=== PATIENT | female | born 1980 | race Caucasian/White ===

== ENCOUNTER → 2018-07-04 | Outpatient (CLI) | payer MEDICAID ==
[~2018-07-04] MED LIST: ACHD5005 PO; ALPR.25T PO; CLIN300C3 PO; DOCU-143 PO; HYDR1TAB8 OP; LORA10TA76 PO; PREN1TAB86 PO; SULF1TAB38 PO; TRAM-21 PO
--- NOTE | 2018-07-04 09:21 | Diagnostic Imaging Report ---
PROCEDURE: CT abdomen and pelvis with contrast. TECHNIQUE: Multiple contiguous axial images were obtained through the abdomen and pelvis after administration of intravenous contrast. INDICATION: Abdominal pain, hernia. The lung bases were nonacute. The liver and gallbladder are unremarkable. Spleen nonfocal and unremarkable for size. There is no adrenal mass. The pancreas had an unremarkable appearance. The unobstructed kidneys normal. There is no bowel obstruction. There is a simple appearing left adnexal cyst presumed ovarian measuring 2.1 cm. The uterus and right adnexa appeared unremarkable. There is no ascites. There is no appendicitis or diverticulitis. There is no abdominopelvic, mesenteric or retroperitoneal lymphadenopathy. The osseous structures were nonacute. IMPRESSION: 1. Small left ovarian cyst likely physiologic without apparent complexity. 2. No obstructive features, inflammatory process or acute appearing abdominal pelvic abnormalities. Dictated by: Dictated on workstation # [id number]
== END ==
LOC: RAD 08:02
PROVIDERS: ATTEND Nurse Practitioner Family
DX: N83.202 Unspecified ovarian cyst, left side (principal); K43.9 Ventral hernia without obstruction or gangrene
CPT/HCPCS: 74177

== ENCOUNTER 2018-07-26 15:33 | Outpatient (CLI) | payer MEDICAID ==
[~2018-07-26] VITALS: Ht 162.6 cm; Wt 70.3 kg
[~2018-07-26 15:33] MED LIST changes: -ACHD5005 PO; -DOCU-143 PO; -LORA10TA76 PO; -PREN1TAB86 PO
[2018-07-26] MEDS ORDERED: LORA10TA76 PO (15:56)
[2018-07-26] MEDS ORDERED: PREN1TAB86 PO (15:56)
[2018-07-27] MEDS ORDERED: ACHD5005 PO (13:07)
[2018-07-27] MEDS ORDERED: DOCU-143 PO (13:07)
== END 2018-07-26 16:08 | disposition home or self-care (01) ==
LOC: PREOP 15:33
PROVIDERS: ATTEND Surgery
DX: Z01.818 Encounter for other preprocedural examination (principal)

== ENCOUNTER 2018-07-27 10:57 | Day surgery (SDC) | payer MEDICAID ==
[~2018-07-27] VITALS: Ht 162.6 cm; Wt 70.3 kg
[~2018-07-27 10:57] MED LIST changes: +LORA10TA76 PO; +PREN1TAB86 PO
[2018-07-27] MEDS ORDERED: LIDOCAINE 1% INJ 20 ML 20 ML VIAL ONE (11:12)
[2018-07-27] MEDS ORDERED: BUPIVACAINE 0.5% 30 ML (SENSORCAINE) VIAL ONE (11:12)
[2018-07-27 11:15] VITALS: BP 118/73
[2018-07-27] MEDS ORDERED: ceFAZolin 2 GM IV Premixed 50 ML IV ONE (11:15)
[2018-07-27] MEDS: LACTATED RINGERS 1,000 ML IV PRN ×2 (11:25→12:41)
[2018-07-27 11:28] LABS: BASOPHILS % (AUTO) 0 % (0-10); EOSINOPHILS # (AUTO) 0.3 10^3/uL (0.0-0.3); EOSINOPHILS % (AUTO) 3 % (0-10); HEMATOCRIT 42 % (35-52); HEMOGLOBIN 13.7 G/DL (11.5-16.0); LYMPHOCYTES # (AUTO) 1.1 X 10^3 (1.0-4.0); LYMPHOCYTES % (AUTO) 14 % (12-44); MEAN CORPUSCULAR HEMOGLOBIN 30 PG (25-34); MEAN CORPUSCULAR HGB CONC 33 G/DL (32-36); MEAN CORPUSCULAR VOLUME 92 FL (80-99); MEAN PLATELET VOLUME 11.5 FL (7.4-10.4); MONOCYTES # (AUTO) 0.6 X 10^3 (0.0-1.0); MONOCYTES % (AUTO) 7 % (0-12); NEUTROPHILS # (AUTO) 5.8 X 10^3 (1.8-7.8); NEUTROPHILS % (AUTO) 75 % (42-75); PLATELET COUNT 176 10^3/uL (130-400); RED CELL DISTRIBUTION WIDTH 13.8 % (10.0-14.5); WHITE BLOOD COUNT 7.7 10^3/uL (4.3-11.0)
[2018-07-27] MEDS ORDERED: fentaNYL INJECTION 100 MCG/2 ML AMP ONE (11:30)
[2018-07-27] MEDS ORDERED: MIDAZOLAM 2 MG/2 ML (VERSED) VIAL ONE (11:30)
[2018-07-27] MEDS ORDERED: PROPOFOL INJECTION 50 ML IV ONE (11:31)
[2018-07-27] MEDS ORDERED: ONDANSETRON 4 MG/2 ML (SDV) Z0FRAN ONE (11:31)
[2018-07-27] MEDS ORDERED: SEVOFLURANE (ULTANE) 15 ML INHAL SOLN ONE ×5 (11:31→13:04)
[2018-07-27] MEDS ORDERED: DEXAMETHASONE 10 MG/ML (DECADRON) 1 ML VIAL ONE (11:31)
[2018-07-27] MEDS ORDERED: LIDOCAINE PF 2% 2 ML (XYLOCAINE) VIAL ONE (11:31)
[2018-07-27] MEDS ORDERED: ROCURONIUM 10 MG/ML 5 ML SYRINGE IV ONE (11:31)
[2018-07-27] MEDS ORDERED: KETOROLAC 30 MG/ML VIAL IVP ONE (11:45)
--- NOTE | 2018-07-27 12:00 | Progress Note-Pre Operative ---
Pre-Operative Progress Note H&P Reviewed The H&P was reviewed, patient examined and no changes noted. Date Seen by Provider: Jul 27, 2018 Time Seen by Provider: 12:00 Date H&P Reviewed: Jul 27, 2018 Time H&P Reviewed: 12:00 Pre-Operative Diagnosis: incisional hernia TIMO DAVALOS DO Jul 27, 2018 12:00
[2018-07-27] MEDS ORDERED: NEOSTIGMINE 1 MG/ML 5 ML SYRINGE ONE (12:57)
[2018-07-27] MEDS ORDERED: GLYCOPYRROLATE 0.2 MG/ML (ROBINUL) 2 ML VIAL ONE (12:57)
--- NOTE | 2018-07-27 13:06 | Progress Note-Post Operative ---
Post-Operative Progess Note Surgeon (s)/Service And Repair Supervisor (s) Surgeon TIMO DAVALOS DO Service And Repair Supervisor: Dr. Ulrich Pre-Operative Diagnosis incisional hernia Post-Operative Diagnosis same Procedure & Operative Findings Date of Procedure 07/27/18 Procedure Performed/Findings lap incisional hernia Anesthesia Type gen Estimated Blood Loss Estimated blood loss (mL): min Specimens/Packing Specimens Removed hernia contents TIMO DAVALOS DO Jul 27, 2018 13:06
[2018-07-27] MEDS ORDERED: ACHD5005 PO (13:07)
[2018-07-27] MEDS ORDERED: DOCU-143 PO (13:07)
--- NOTE | 2018-07-27 13:09 | Discharge Inst-Simple/Standard ---
Discharge Inst-Standard Discharge Medications New, Converted or Re-Newed RX: RX on Chart Patient Instructions/Follow Up Plan of Care/Instructions/FU: 2 weeks Irene Activity as Tolerated: No Discharge Diet: Regular Diet Other Inst to Patient Follow up Appt: Make appointment for 2 week. Instructions: No lifting greater than 10 pounds. No strenuous activity. May shower in 24 hours, no tub bath or soaking. Use incentive spirometer at home as directed. No Smoking Skin/Wound Care: You have special glue over incisions it will fall off on its own. Symptoms to Report: Appetite Changes, Extremity Discoloration, Numbness/Tingling, Swelling Increased , Bleeding Excessive, Eyesight Changes, Pain Increased, Urine Color Change, Constipation(Persistent), Fever over 101 degree F, Pain/Pressure in chest, Urinating Difficulty, Cough Up/Vomit Blood, Heart Beat Irreg/Pounding, Pain/ Pressure in jaw, Vaginal Bleeding Increase, Cramps in feet or legs, Lightheadedness, Pain/Pressure in shoulder, Diarrhea(Persistent), Memory Changes Suddenly, Questions/Concerns, Weight gain consecutive days, Dizziness/ Fainting, Nausea/Vomiting, Shortness of Breath, Weight gain over 2 pounds If questions or concerns contact your physician Or seek help at emergency department. TIMO IRENE DO Jul 27, 2018 13:09
[2018-07-27] MEDS ORDERED: HYDROcodone/APAP 5 MG/325 MG (LORTAB) TAB PO PRN (13:15)
[2018-07-27] MEDS ORDERED: morphine INJ 10 MG/ML 1ML (SYR OR VIAL) IVP ONE (13:30)
[2018-07-27] MEDS ORDERED: HYDROmorphone 2 MG/ML VIAL (DILAUDID) IV ONE (13:30)
[2018-07-27] MEDS ORDERED: ONDANSETRON 4 MG/2 ML (SDV) Z0FRAN IVP PRN (13:30)
[2018-07-27] MEDS ORDERED: MEPERIDINE (DEMEROL) INJ 50 MG/ML IVP ONE (13:30)
[2018-07-27] MEDS ORDERED: HYDROmorphone 2 MG/ML VIAL (DILAUDID) ONE (13:50)
[2018-07-27 14:20] VITALS: BP 115/63
[2018-07-27] MEDS ORDERED: HYDROcodone/APAP 5 MG/325 MG (LORTAB) TAB ONE (14:29)
[2018-07-27] MEDS ORDERED: HYDROcodone/APAP 10 MG/325 MG (LORTAB) TAB PO ONE (14:37)
[2018-07-27] MEDS ORDERED: HYDROcodone/APAP 10 MG/325 MG (LORTAB) TAB PO NR (14:45)
[2018-07-27 14:50] VITALS: BP 113/78
--- NOTE | 2018-07-27 14:51 | OPERATIVE REPORT ---
DATE OF SERVICE: 07/27/2018 PREOPERATIVE DIAGNOSIS: Incisional hernia. POSTOPERATIVE DIAGNOSIS: Incisional hernia. PROCEDURE: Laparoscopic incisional hernia repair. SURGEON: Timo Irene DO FABRICATION AND ASSEMBLY SUPERVISOR: Dr. Ulrich, assisted in retraction, dissection and closure. ESTIMATED BLOOD LOSS: Minimal. COMPLICATIONS: None. INDICATIONS: The patient is a 38-year-old female with an incisional hernia. She understands risks and benefits of procedure and wished to proceed with procedure. Consent was signed in the chart. DESCRIPTION OF PROCEDURE: The patient was taken to the operating suite. She was prepped and draped in sterile fashion. Surgical pause was performed. Jazlyn technique was used to enter the abdomen in left upper quadrant. A balloon trocar was inserted and pneumoperitoneum was achieved. Under direct visualization of the laparoscope, a 5 mm trocar was placed in left lower quadrant, a 5 mm trocar was placed in the right lower quadrant. Hernia was visualized at the umbilicus, which was some fat containing which was grasped, elevated and removed. The falciform ligament was then partially taken down using a [place] and cautery in retraction. Once that was performed, the pelvis was inspected. Both ovaries had normal appearance. The uterus had normal appearance as well. A 4-1/2 inch Echo mesh was inserted in the abdomen and grasped through a stab incision at the umbilicus, which was grasped and elevated. The balloon was inflated using a SecureStrap Tacker. Circumferential tacks were placed. The balloon was removed. The inner crown of tacks was placed as well. The abdomen was then desufflated, trocars were removed. The fascia of the 12 mm trocar site was closed with 0 Vicryl suture in a weehic-es-nofpr fashion. The skin was then closed using 4-0 Monocryl in a subcuticular fashion. The abdomen was then washed and dried and Skin Affix was placed over the incisions. The patient tolerated the procedure well without any complications. She was taken to the recovery room in stable condition. Job ID: [id number] DocumentID: [id number] Dictated Date: 07/27/2018 13:20:33 Veterans' Coordinator Date: 07/27/2018 14:50:30 Dictated By: TIMO IRENE DO
[2018-07-27 15:20] VITALS: BP 112/74
[2018-07-27 16:00] VITALS: BP 112/74
== END 2018-07-27 16:00 | disposition home or self-care (01) ==
LOC: SDC 10:57
PROVIDERS: ATTEND Surgery
DX: K43.2 Incisional hernia without obstruction or gangrene (principal)
CPT/HCPCS: 36415; 84703; 85025; 87081; 94664

== ENCOUNTER 2018-08-30 21:19 | Emergency (ER) | payer MEDICAID ==
[~2018-08-30] VITALS: Ht 162.6 cm; Wt 70.3 kg
[~2018-08-30 21:19] MED LIST changes: +ACHD5005 PO; +DOCU-143 PO
[2018-08-30] MEDS ORDERED: LACTATED RINGERS 1,000 ML IV ONE (22:24)
[2018-08-30] MEDS ORDERED: KETOROLAC 30 MG/ML VIAL IVP STA (22:24)
[2018-08-30] MEDS ORDERED: ONDANSETRON 4 MG/2 ML (SDV) Z0FRAN IVP ONE (22:30)
[2018-08-30 22:41] LABS: BILIRUBIN,URINE NEGATIVE (NEGATIVE); CLARITY,URINE CLEAR; COLOR,URINE YELLOW; GLUCOSE, URINE (UA) NEGATIVE (NEGATIVE); KETONES,URINE 1+ (NEGATIVE); LEUKOCYTE ESTERASE ,URINE 2+ (NEGATIVE); NITRITE,URINE POSITIVE (NEGATIVE); PH,URINE 7 (5-9); PROTEIN,URINE NEGATIVE (NEGATIVE); UROBILINOGEN,URINE 1 MG/DL (NORMAL)
[2018-08-30 22:49] LABS: BASOPHILS # (AUTO) 0.1 10^3/uL (0.0-0.1); BASOPHILS % (AUTO) 1 % (0-10); EOSINOPHILS # (AUTO) 0.4 10^3/uL (0.0-0.3); EOSINOPHILS % (AUTO) 5 % (0-10); HEMATOCRIT 42 % (35-52); HEMOGLOBIN 14.1 G/DL (11.5-16.0); LYMPHOCYTES # (AUTO) 2.2 X 10^3 (1.0-4.0); LYMPHOCYTES % (AUTO) 28 % (12-44); MEAN CORPUSCULAR HEMOGLOBIN 30 PG (25-34); MEAN CORPUSCULAR HGB CONC 33 G/DL (32-36); MEAN CORPUSCULAR VOLUME 90 FL (80-99); MEAN PLATELET VOLUME 12.2 FL (7.4-10.4); MONOCYTES # (AUTO) 0.7 X 10^3 (0.0-1.0); MONOCYTES % (AUTO) 9 % (0-12); NEUTROPHILS # (AUTO) 4.5 X 10^3 (1.8-7.8); NEUTROPHILS % (AUTO) 57 % (42-75); PLATELET COUNT 216 10^3/uL (130-400); RED BLOOD COUNT 4.69 10^6/uL (4.35-5.85); RED CELL DISTRIBUTION WIDTH 13.1 % (10.0-14.5); WHITE BLOOD COUNT 7.8 10^3/uL (4.3-11.0)
[2018-08-30 22:58] LABS: BACTERIA,URINE TRACE /HPF
[2018-08-30 23:02] LABS: ALANINE AMINOTRANSFERASE 17 U/L (0-55); ALBUMIN 4.5 GM/DL (3.2-4.5); ALKALINE PHOSPHATASE 51 U/L (40-136); BILIRUBIN,TOTAL 0.2 MG/DL (0.1-1.0); BUN/CREATININE RATIO 25; CARBON DIOXIDE 25 MMOL/L (21-32); CHLORIDE 102 MMOL/L (98-107); CREATININE SERUM 0.93 MG/DL (0.60-1.30); GFR ESTIMATED > 60; GLUCOSE 93 MG/DL (70-105); POTASSIUM 4.4 MMOL/L (3.6-5.0); SODIUM 139 MMOL/L (135-145)
--- NOTE | 2018-08-30 23:08 | ED Abdominal Pain ---
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 A&OX4. C/O RT SIDE FLANK PAIN THAT RADIATES TO RT LOWER ABD, GROIN AREA THAT BEGAN APPROX 2014 THIS EVENING. REPORTS RECENT CHILLS AND IS CURRENTLY AFEBRILE WITH TYMPANIC TEMP OF 96.9. PT REPORTS PAIN CAME OUT OF NOWHERE. REPORTS PAIN 12 OUT OF 10. Source of Information: Patient Exam Limitations: No Limitations History of Present Illness Date Seen by Provider: Aug 30, 2018 Time Seen by Provider: 22:05 Initial Comments PT ARRIVES VIA POV FROM HOME C/O RLQ PAIN SINCE 2029 TONIGHT PAIN BEGAN RIGHT AFTER SHE SAT DOWN HAD SOME PAIN IN RIGHT LOWER BACK AROUND 1900, AND IS STILL THERE, BUT NOT BAD NOTHING WORSENS OR IMPROVES PAIN PAIN IS CONSTANT NO URINARY SYMPTOMS NO FEVER + NAUSEA, NO VOMITING NO DIARRHEA/CONSTIPATION--HAD A NORMAL BM TODAY NO HISTORY OF SIMILAR PT HAS NOT TAKEN ANYTHING FOR PAIN LMP 3 WEEKS AGO, S/P BTL. HAD UMBILICAL HERNIA REPAIR [address] DAVALOS PCP: [facility] Allergies and Home Medications Allergies Coded Allergies: No Known Drug Allergies (Unverified , 07/26/18) Home Medications Docusate Sodium 100 Mg Capsule, 100 MG PO BID Prescribed by: TIMO DAVALOS on 07/27/18 1307 Fluconazole 200 Mg Tablet, 200 MG PO DAILY Prescribed by: IMAN KRAMER on 08/31/182 Hydrocodone Bit/Acetaminophen 1 Tab Tab, 1-2 TAB PO Q6H PRN for PAIN-MODERATE Prescribed by: TIMO DAVALOS on 07/27/18 1307 Loratadine 10 Mg Tablet, 10 MG PO DAILY, (Reported) Naproxen 500 Mg Tablet, 500 MG PO BID Prescribed by: IMAN KRAMER on 08/31/182 Nitrofurantoin Monohyd/M-Cryst 100 Mg Capsule, 100 MG PO BID Prescribed by: IMAN KRAMER on 08/31/182 Ondansetron 4 Mg Tab.rapdis, 4 MG PO Q4H Prescribed by: IMAN KRAMER on 08/31/18 0003 Vit W-Ca,Fe,FA(<1 mg) 1 Each Tablet, 1 EACH PO DAILY, (Reported) Patient Home Medication List Home Medication List Reviewed: Yes Review of Systems Review of Systems Constitutional: no symptoms reported Respiratory: No Symptoms Reported Cardiovascular: No Symptoms Reported Gastrointestinal: See HPI, Abdominal Pain; Denies Diarrhea; Nausea; Denies Vomiting Genitourinary: See HPI, Flank Pain Musculoskeletal: see HPI, back pain Psychiatric/Neurological: No Symptoms Reported Endocrine: No Symptoms Reported Past Mrfgeon-Jbcujf-Qjfmqa Hx Patient Social History Alcohol Use: Occasionally Uses Number of Drinks Today: Alcohol Beverage of Choice: Wine Recreational Drug Use: No Smoking Status: Former Smoker (1 PPD, QUIT) Type Used: Cigarettes Former Smoker, Quit: Apr 30, 2014 2nd Hand Smoke Exposure: No Recent Foreign Travel: No Contact w/Someone Who Travel: No Recent Infectious Disease Expo: No Recent Hopitalizations: No Physical Abuse: No Sexual Abuse: No Mistreated: No Immunizations Up To Date Date of Influenza Vaccine: Jul 30, 2017 Seasonal Allergies Seasonal Allergies: Yes Past Medical History Surgeries: Yes (HIATAL HERNIA REPAIR AGE 15; BREAST AUGMENTATION; UMBILICAL HERNIA REPAIR WITH MESH JUL 2018--DR. 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 Sexually Transmitted Disease: No HIV/AIDS: No Genitourinary: No Gastrointestinal: Yes (S/P HIATAL HERNIA REPAIR AND UMBILICAL HERNIA REPAIR) Abdominal Hernia, Gastroesophageal Reflux, Hiatal Hernia Musculoskeletal: No Endocrine: No HEENT: No Loss of Vision: Bilateral Hearing Impairment: Denies Cancer: No Psychosocial: No Anxiety Integumentary: No Blood Disorders: No Adverse Reaction/Blood Tranf: No (N/A) Physical Exam Vital Signs Vital Signs - First Documented 08/30/18 21:44 Temp 96.9 Pulse 94 Resp 16 B/P (MAP) 114/54 (74) Pulse Ox 99 O2 Delivery Room Air Capillary Refill : Less Than 3 Seconds Height/Weight/BMI Height: 5'4.00" Weight: 155lbs. 0.0oz. 70.454515sy; 26.6 BMI Method:Stated General Appearance: WD/WN, no apparent distress, other (ON PHONE, DOES NOT APPEAR TO BE IN ANY DISCOMFORT OR DISTRESS) Neck: normal inspection Respiratory: normal breath sounds, no respiratory distress, no accessory muscle use Cardiovascular: regular rate, rhythm, no murmur Gastrointestinal: normal bowel sounds, soft, no organomegaly, no pulsatile mass ; No distended, No guarding, No rebound; tenderness (RLQ); No hernia, No mass Extremities: normal inspection, no pedal edema, no calf tenderness, normal capillary refill Back: normal inspection, no CVA tenderness Neurologic/Psychiatric: 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, no motor/sensory deficits, alert, normal mood/affect, oriented x 3 Skin: normal color, warm/dry; No rash Progress/Results/Core Measures Results/Orders Lab Results Laboratory Tests Test 08/30/18 21:03 08/30/18 21:56 Range/Units Urine Color YELLOW Urine Clarity CLEAR Urine pH 7 5-9 Urine Specific [place] 1.015 L 1.016-1.022 Urine Protein NEGATIVE NEGATIVE Urine Glucose (UA) NEGATIVE NEGATIVE Urine Ketones 1+ H NEGATIVE Urine Nitrite POSITIVE H NEGATIVE Urine Bilirubin NEGATIVE NEGATIVE Urine Urobilinogen 1 NORMAL MG/DL Urine Leukocyte Esterase 2+ H NEGATIVE Urine RBC (Auto) NEGATIVE NEGATIVE Urine RBC NONE /HPF Urine WBC 10-25 H /HPF Urine Squamous Epithelial Cells 2-5 /HPF Urine Crystals NONE /LPF Urine Bacteria TRACE /HPF Urine Casts NONE /LPF Urine Mucus NEGATIVE /LPF Urine Culture Indicated YES Urine Test NEGATIVE NEGATIVE White Blood Count 7.8 4.3-11.0 10^3/uL Red Blood Count 4.69 4.35-5.85 10^6/uL Hemoglobin 14.1 11.5-16.0 G/DL Hematocrit 42 35-52 % Mean Corpuscular Volume 90 80-99 FL Mean Corpuscular Hemoglobin 30 25-34 PG Mean Corpuscular Hemoglobin Concent 33 32-36 G/DL Red Cell Distribution Width 13.1 10.0-14.5 % Platelet Count 216 130-400 10^3/uL Mean Platelet Volume 12.2 H 7.4-10.4 FL Neutrophils (%) (Auto) 57 42-75 % Lymphocytes (%) (Auto) 28 12-44 % Monocytes (%) (Auto) 9 0-12 % Eosinophils (%) (Auto) 5 0-10 % Basophils (%) (Auto) 1 0-10 % Neutrophils # (Auto) 4.5 1.8-7.8 X 10^3 Lymphocytes # (Auto) 2.2 1.0-4.0 X 10^3 Monocytes # (Auto) 0.7 0.0-1.0 X 10^3 Eosinophils # (Auto) 0.4 H 0.0-0.3 10^3/uL Basophils # (Auto) 0.1 0.0-0.1 10^3/uL Sodium Level 139 135-145 MMOL/L Potassium Level 4.4 3.6-5.0 MMOL/L Chloride Level 102 98-107 MMOL/L Carbon Dioxide Level 25 21-32 MMOL/L Anion Gap 12 5-14 MMOL/L Blood Urea Nitrogen 23 H 7-18 MG/DL Creatinine 0.93 0.60-1.30 MG/DL Estimat Glomerular Filtration Rate > 60 BUN/Creatinine Ratio 25 Glucose Level 93 70-105 MG/DL Calcium Level 10.0 8.5-10.1 MG/DL Corrected Calcium 9.6 8.5-10.1 MG/DL Total Bilirubin 0.2 0.1-1.0 MG/DL Aspartate Amino Transf (AST/SGOT) 18 5-34 U/L Alanine Aminotransferase (ALT/SGPT) 17 0-55 U/L Alkaline Phosphatase 51 40-136 U/L Total Protein 7.0 6.4-8.2 GM/DL Albumin 4.5 3.2-4.5 GM/DL My Orders Orders - IMAN KRAMER DO Saline Lock/Iv-Start (08/30/18 22:24) Cbc With Automated Diff (08/30/18 22:24) Comprehensive Metabolic Panel (08/30/18 22:24) Hcg,Qualitative Urine (08/30/18 22:24) Ua Culture If Indicated (08/30/18 22:24) Saline Lock/Iv-Start (08/30/18 22:24) Lactated Ringers (Lr 1000 Ml Iv Solution (08/30/18 22:24) Ketorolac Injection (Toradol Injection) (08/30/18 22:24) Ondansetron Injection (Zofran Injectio (08/30/18 22:30) Urine Culture (08/30/18 21:03) Ct Abd/Pelv W (Appendicitis) (08/30/18 23:01) Abdomen/Kub 1view (08/30/18 23:01) Iohexol Injection (Omnipaque 350 Mg/Ml 1 (08/30/18 23:30) Contrast Received (Contrast Received) (08/30/18 23:30) Ns (Ivpb) (Sodium Chloride 0.9%) (08/30/18 23:30) Ceftriaxone For Iv Use (Rocephin For I (08/31/18 00:00) Rx-Naproxen (Rx-Naprosyn) (08/31/18 00:00) Rx-Ondansetron Po (Rx-Zofran Po) (08/31/18 00:00) Medications Given in ED Current Medications Medications Dose Ordered Sig/Linda Route Start Time Stop Time Status Last Admin Dose Admin Iohexol 100 ml ONCE ONCE IV 08/30/18 23:30 08/30/18 23:31 DC 08/30/18 23:27 100 ML Lactated Ringer's 1,000 ml @ 0 mls/hr Q0M ONCE IV 08/30/18 22:24 08/30/18 22:26 DC 08/30/18 22:38 0 MLS/HR Ondansetron HCl 4 mg ONCE ONCE IVP 08/30/18 22:30 08/30/18 22:31 DC 08/30/18 22:38 4 MG Sodium Chloride 250 ml ONCE ONCE IV 08/30/18 23:30 08/30/18 23:31 DC 08/30/18 23:28 80 ML Vital Signs/I&O 08/30/18 21:44 Temp 96.9 Pulse 94 Resp 16 B/P (MAP) 114/54 (74) Pulse Ox 99 O2 Delivery Room Air 08/31/18 00:00 Intake Total 1000 ml Balance 1000 ml Blood Pressure Mean: 74 Progress Progress Note : Progress Note PT IS ON CELL PHONE THROUGHOUT EXAM AND ENTIRE ER STAY--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 PT STATES NAUSEA AND PAIN ARE BETTER AT DISMISSAL Diagnostic Imaging Comments CT ABDOMEN/PELVIS--NO ACUTE PROCESS, PER [facility] VIA FAX @ 0004 KUB--NO ACUTE PROCESS, PENDING RADIOLOGIST REVIEW Reviewed: Reviewed by Me Departure Impression Primary Impression: UTI (urinary tract infection) Disposition: HOME, SELF-CARE Condition: Improved Departure-Patient Inst. Referrals: [facility] (PCP/Family) Primary Care Physician Patient Instructions: Urinary Tract Infection, Adult (DC) Add. Discharge Instructions: LOTS OF CLEAR LIQUIDS FOLLOW UP WITH YOUR DR IN 1 WEEK FOR RECHECK RETURN TO ER IF WORSE All discharge instructions reviewed with patient and/or family. Voiced understanding. Scripts Ondansetron (Zofran Odt) 4 Mg Tab.rapdis 4 MG PO Q4H for Nausea/Vomiting, #10 TAB Prov: IMAN KRAMER DO 08/31/18 Naproxen (Naproxen) 500 Mg Tablet 500 MG PO BID, #20 TAB Prov: IMAN KRAMER DO 08/31/18 Fluconazole (Diflucan) 200 Mg Tablet 200 MG PO DAILY for FOR YEAST INFECTION, #3 TAB Prov: IMAN KRAMER DO 08/31/18 Nitrofurantoin Monohyd/M-Cryst (Macrobid 100 mg Capsule) 100 Mg Capsule 100 MG PO BID, #20 CAP Prov: IMAN KRAMER DO 08/31/18 IMAN KRAMER DO Aug 30, 2018 23:08
[2018-08-30] MEDS ORDERED: RECEIVED CONTRAST (Hold Metformin) IV SCH (23:30)
[2018-08-30] MEDS ORDERED: NS 250 ML (IVPB) BAG IV ONE (23:30)
[2018-08-30] MEDS ORDERED: IOHEXOL 350 MG/ML 100 ML (OMNIPAQUE 350) VIAL IV ONE (23:30)
[2018-08-31] MEDS ORDERED: cefTRIAXone FOR IV USE 1,000 MG in NS (IVPB) 50 ML IV ONE ×2
[2018-08-31] MEDS ORDERED: RX-NAPROXEN (NAPROSYN) 250 MG TAB PPK#4 PO STA
[2018-08-31] MEDS ORDERED: RX-ONDANSETRON 4 MG ODT (ZOFRAN) PPK #4 PO STA
[2018-08-31] MEDS ORDERED: NAPR-915 PO (00:03)
[2018-08-31] MEDS ORDERED: FLUC200T PO (00:03)
[2018-08-31] MEDS ORDERED: ONDA4TAB8 PO (00:03)
[2018-08-31] MEDS ORDERED: NITR-65 PO (00:03)
[2018-08-31 00:33] VITALS: BP 108/62
--- NOTE | 2018-08-31 05:44 | Diagnostic Imaging Report ---
INDICATION: Right lower quadrant abdominal pain COMPARISON: None FINDINGS: Two supine radiographic views of the abdomen were obtained and demonstrate nondistended loops of small bowel. There is no large collection of free peritoneal air. Moderate air and stool are seen scattered throughout the colon. No unexpected extraosseous calcifications or radiopaque foreign bodies are seen. Bony structures show no gross acute abnormalities. IMPRESSION: 1. Nonobstructed small bowel gas pattern. 2. Moderate colonic air and stool. Please correlate for constipation Dictated by: Dictated on workstation # [id number]
--- NOTE | 2018-08-31 06:29 | Diagnostic Imaging Report ---
PROCEDURE: CT abdomen and pelvis with contrast, rule out appendicitis. TECHNIQUE: Multiple contiguous axial images were obtained through the abdomen and pelvis after the administration of intravenous contrast. INDICATION: Right flank pain. Comparison is made to study of 07/04/2018. FINDINGS: There is no focal hepatic or splenic abnormality. The stomach is distended with fluid and gas. The gallbladder is partially contracted. There does appear to be mural thickening at the duodenum. Otherwise, there is no evidence of adrenal gland or renal abnormality in the retroperitoneum. There is moderate to large amount of stool throughout the colon. There is no evidence of organized fluid collection to indicate hematoma or abscess. Evaluation of bladder is limited without intravenous contrast, however there is no evidence of bladder abnormality. Uterus is somewhat prominent. IMPRESSION: Moderate amount of stool may reflect constipation. In addition, there is mural thickening of the duodenum possibly related to duodenitis or peptic ulcer disease. Otherwise no acute abnormality or adverse change is identified. Dictated by: Dictated on workstation # [id number]
== END 2018-08-31 00:35 | disposition home or self-care (01) ==
LOC: EDUNIT# 21:19 → ER 21:20
DX: N39.0 Urinary tract infection, site not specified (principal); K21.9 Gastro-esophageal reflux disease without esophagitis; F41.9 Anxiety disorder, unspecified; Z87.891 Personal history of nicotine dependence; Z98.890 Other specified postprocedural states; Z98.51 Tubal ligation status
CPT/HCPCS: 36415; 74018; 74177; 80053; 81000; 84703; 85025; 87088; 96361; 96365; 96375

== ENCOUNTER 2019-05-15 08:02 | Emergency (ER) | payer MEDICAID ==
[~2019-05-15] VITALS: Ht 162.6 cm; Wt 74.8 kg
[~2019-05-15 08:02] MED LIST changes: +FLUC200T PO; +NAPR-915 PO; +NITR-65 PO; +ONDA4TAB8 PO
--- OUTSIDE RECORDS SUMMARY | 2019-05-15 08:08 | XMS REPORT ---
Author Author CHIARA ABREU Organization [facility] Address [address] [place] [address] Care Team Providers Care Copy Lathe Operator Name Role Phone CHIARA ABREU Unavailable PROBLEMS Type Condition ICD9-CM Code UOM67-TB Code Onset Dates Condition Status SNOMED Code Problem Acute seasonal allergic rhinitis J30.2 Active 435320318 Problem Hallux valgus (acquired), right foot M20.11 Active 707405184 Problem Seasonal allergic rhinitis due to pollen J30.1 Active 68052703 Problem Primary insomnia F51.01 Active 0328802 Problem Acquired hallux valgus of left foot M20.12 Active 793206841413400 Problem Mixed hyperlipidemia E78.2 Active 117512379 ALLERGIES No Information ENCOUNTERS Encounter Location Date Diagnosis [facility] [address] [address] Aug, Hallux valgus (acquired), right foot M20.11 and Acquired hallux valgus of left foot M20.12 [facility] [id number] [place] [phone] Jul, Acute seasonal allergic rhinitis J30.2 [facility] [id number] [place] [address] Jul, Uncomplicated epigastric hernia K43.9 [facility] [id number] [place] [address] Jul, Yeast infection involving the vagina and surrounding area B37.3 [facility] [id number] [place] [address] May, Uncomplicated epigastric hernia K43.9 and Bunion of great toe of left foot M21.612 [facility] [address] [address] Apr, Primary insomnia F51.01 ; Seasonal allergic rhinitis due to pollen J30.1 and Mixed hyperlipidemia E78.[address] [address] February, Acne vulgaris L70.[address] [address] February, Seasonal allergic rhinitis due to pollen J30.1 and Sore throat J02.9 [place] [address] [address] Dec, Anxiety F41.[address] [address] Dec, [address] [address] Dec, Encounter for health maintenance examination in adult Z00.00 ; Weight loss R63.4 ; Pilonidal cyst without abscess L05.91 and Changes in vision H53.[address] [address] Oct, Encounter for health maintenance examination in adult Z00.00 ; Pilonidal cyst without abscess L05.91 ; Changes in vision H53.9 ; Weight loss R63.4 ; Primary insomnia F51.01 and Frequent urination at night R35.[address] [address] Aug, Pilonidal cyst with abscess L05.01 [place] [id number] [place] [phone] Jul, Encounter for immunization Z23 [address] [address] Jan, URI (upper respiratory infection) J06.[address] [address] Jul, Encounter for immunization Z23 [facility] [id number] [address] Jul, [facility] [id number] [place] [phone] Jul, Pilonidal cyst with abscess L05.01 [facility] [id number] [place] [phone] 14 Jan, 2015 [facility] [id number] [place] [address] Jan, [facility] [id number] [place] [address] Jul, [facility] [id number] [place] [phone] Jul, [facility] [id number] [place] [phone] Jul, [facility] [id number] [place] [phone] Jul, [facility] [id number] [place] [address] Jul, [facility] [id number] [place] [phone] Jul, [facility] [id number] [place] [phone] Jul, [facility] [id number] [place] [phone] Jul, IMMUNIZATIONS No Known Immunizations SOCIAL HISTORY Never Assessed REASON FOR VISIT left toe karen - BRANDON Hancock PLAN OF CARE Activity Details Follow Up prn Reason: Pending Test Xray : Foot, Left 2 views (IN HOUSE) Pending Test Xray : Foot, Right 2 views (IN HOUSE) Future/Pending Procedure FOOT ARCH SUPP LONGITUD/META VITAL SIGNS Height 64 in 2018-09-01 Blood pressure systolic 90 mmHg 2018-09-01 Blood pressure diastolic 62 mmHg 2018-09-01 MEDICATIONS Unknown Medications RESULTS No Results PROCEDURES Procedure Date Ordered Result Body Site X-RAY EXAM OF FOOT Sep 01, 2018 FT ARCH SUPP PREMOLD LNGTUDNL/MT EA Sep 01, 2018 INSTRUCTIONS MEDICATIONS ADMINISTERED No Known Medications MEDICAL (GENERAL) HISTORY Type Description Date Medical History pilonidal cyst Medical History Insomnia Medical History Allergic Rhinitis Surgical History Breast Implants 1999 Surgical History hiatal hernia Surgical History salpingectomy 2015 Surgical History umbilical hernia repair 2018 Hospitalization History 04/2015 Hospitalization History Hiatal hernia 1996
--- OUTSIDE RECORDS SUMMARY | 2019-05-15 08:08 | XMS REPORT ---
Author Author KING SEAN [facility] Address [address] [place] [address] Care Team Providers Care Mobile Game Engineer Name Role Phone SEAN GARCIA Unavailable PROBLEMS Type Condition ICD9-CM Code QFP03-TT Code Onset Dates Condition Status SNOMED Code Problem Acute seasonal allergic rhinitis J30.2 Active 808801729 Problem Hallux valgus (acquired), right foot M20.11 Active 695969116 Problem Seasonal allergic rhinitis due to pollen J30.1 Active 57545168 Problem Primary insomnia F51.01 Active 7398297 Problem Acquired hallux valgus of left foot M20.12 Active 834854227796559 Problem Mixed hyperlipidemia E78.2 Active 300145417 ALLERGIES No Known Allergies ENCOUNTERS Encounter Location Date Diagnosis [facility] [address] [address] 07 Sep, 2018 Elevated BUN R79.9 [facility] [address] [address] Sep, Gastroenteritis K52.9 [facility] [address] [address] Aug, Hallux valgus (acquired), right foot M20.11 and Acquired hallux valgus of left foot M20.12 [facility] [address] [place] [id number] [place] [address] Jul, Acute seasonal allergic rhinitis J30.2 [facility] [address] [address] Jul, Uncomplicated epigastric hernia K43.9 [facility] [address] [address] Jul, Yeast infection involving the vagina and surrounding area B37.3 [place] [id number] [place] [address] May, Uncomplicated epigastric hernia K43.9 and Bunion of great toe of left foot M21.612 [place] [address] [id number] [place] [address] Apr, Primary insomnia F51.01 ; Seasonal allergic rhinitis due to pollen J30.1 and Mixed hyperlipidemia E78.2 [place] [address] [address] February, Acne vulgaris L70.[address] [address] February, Seasonal allergic rhinitis due to pollen J30.1 and Sore throat J02.9 [place] [id number] [place] [address] Dec, Anxiety F41.9 [place] [address] [address] Dec, [address] [address] Dec, Encounter for health maintenance examination in adult Z00.00 ; Weight loss R63.4 ; Pilonidal cyst without abscess L05.91 and Changes in vision H53.9 [place] [id number] [place] [address] Oct, Encounter for health maintenance examination in adult Z00.00 ; Pilonidal cyst without abscess L05.91 ; Changes in vision H53.9 ; Weight loss R63.4 ; Primary insomnia F51.01 and Frequent urination at night R35.1 [place] [address] [id number] [place] [address] Aug, Pilonidal cyst with abscess L05.01 [place] [address] [place] [id number] [place] [address] Jul, Encounter for immunization Z23 [facility] [address] [place] [address] Jan, URI (upper respiratory infection) J06.9 [facility] [address] [address] Jul, Encounter for immunization Z23 [facility] [id number] [place] [address] Jul, [facility] [id number] [address] Jul, Pilonidal cyst with abscess L05.01 [facility] [id number] [place] [address] 14 Jan, 2015 [facility] [id number] [place] [address] Jan, [facility] [id number] [place] [address] Jul, [facility] [address] [address] Jul, [facility] [address] [place] [address] Jul, [facility] [address] [address] Jul, [facility] [address] [place] [address] Jul, [facility] [address], [place] [address] Jul, [facility] [id number] [place] [address] Jul, [facility] [address] [place] [address] Jul, IMMUNIZATIONS No Known Immunizations SOCIAL HISTORY Never Assessed REASON FOR VISIT Had gone to the ER at the end of July for abdominal pain. They told her that she had a urinary infection and that her kidneys were "dry" [employer] [employer] MA PLAN OF CARE Activity Details Follow Up prn Reason:needs IPT VITAL SIGNS Height 64 in 2018-10-06 Weight 162.8 lbs 2018-10-06 Temperature 97.4 degrees Fahrenheit 2018-10-06 Heart Rate 90 bpm 2018-10-06 Respiratory Rate 20 2018-10-06 BMI 27.94 kg/m2 2018-10-06 Blood pressure systolic 98 mmHg 2018-10-06 Blood pressure diastolic 60 mmHg 2018-10-06 MEDICATIONS Medication Instructions Dosage Frequency Start Date End Date Duration Status Melatonin 10 MG Active Dicyclomine HCl 10 mg Orally Four times a day 2 capsules 6h Sep, 3 days Active Xyzal Allergy 24HR 5 MG Orally Once a day 1 tablet in the evening 24h 30 day(s) Active Flonase 50 mcg/act Nasally Once a day 2 spray in each nostril 24h Jul, 30 day(s) Active Zofran ODT 4 MG Orally every 4 hrs 1 tablet on the tongue and allow to dissolve as needed 4h Sep, 5 days Active 28-0.8 MG Active RESULTS No Results PROCEDURES Procedure Date Ordered Result Body Site LAB NOT BILLED BY [facility] Oct 06, 2018 VENIPUNCT, ROUTINE* Oct 06, 2018 INSTRUCTIONS MEDICATIONS ADMINISTERED No Known Medications MEDICAL (GENERAL) HISTORY Type Description Date Medical History pilonidal cyst Medical History Insomnia Medical History Allergic Rhinitis Surgical History Breast Implants 1999 Surgical History hiatal hernia Surgical History salpingectomy 2016 Surgical History umbilical hernia repair 2018 Hospitalization History 04/2015 Hospitalization History Hiatal hernia 1996
--- OUTSIDE RECORDS SUMMARY | 2019-05-15 08:08 | XMS REPORT ---
Author Author Migration, Doctor Organization [facility] Address Unknown Phone Unavailable Care Team Providers Care Food Preparation Supervisor Name Role Phone Migration, Doctor Unavailable Unavailable PROBLEMS Type Condition ICD9-CM Code QMC48-WO Code Onset Dates Condition Status SNOMED Code Problem Hallux valgus (acquired), right foot M20.11 Active 317461453 Problem Acute seasonal allergic rhinitis J30.2 Active 553713583 Problem Primary insomnia F51.01 Active 0739725 Problem Seasonal allergic rhinitis due to pollen J30.1 Active 44097013 Problem Mixed hyperlipidemia E78.2 Active 484735576 Problem Acquired hallux valgus of left foot M20.12 Active 685400970763822 ALLERGIES No Information ENCOUNTERS Encounter Location Date Diagnosis [facility] [address] [address] Dec, Sore throat J02.9 and Acute nasopharyngitis J00 [facility] [address] [address] Sep, Acute maxillary sinusitis J01.00 [facility] [address] [address] Sep, Elevated BUN R79.9 [facility] [address] [address] Sep, Gastroenteritis K52.9 [facility] [address] [address] Aug, Hallux valgus (acquired), right foot M20.11 and Acquired hallux valgus of left foot M20.12 [facility] [address] [address] Jul, Acute seasonal allergic rhinitis J30.2 [facility] [address] [address] Jul, Uncomplicated epigastric hernia K43.9 [facility] [address] [place] [address] [id number] [place] [address] Jul, Yeast infection involving the vagina and surrounding area B37.3 [place] [address] [place] [address] [id number] [place] [address] May, Uncomplicated epigastric hernia K43.9 and Bunion of great toe of left foot M21.612 [place] [address] [place] [id number] [place] [address] Apr, Primary insomnia F51.01 ; Seasonal allergic rhinitis due to pollen J30.1 and Mixed hyperlipidemia E78.2 [place] [address] [place] [id number] [place] [address] February, Acne vulgaris L70.[address] [address] February, Seasonal allergic rhinitis due to pollen J30.1 and Sore throat J02.9 [place] [id number] [place] [address] Dec, Anxiety F41.9 [place] [address] [place] [id number] [place] [address] Dec, [place] [id number] [place] [address] Dec, Encounter for health maintenance examination in adult Z00.00 ; Weight loss R63.4 ; Pilonidal cyst without abscess L05.91 and Changes in vision H53.[address] [address] Oct, Encounter for health maintenance examination in adult Z00.00 ; Pilonidal cyst without abscess L05.91 ; Changes in vision H53.9 ; Weight loss R63.4 ; Primary insomnia F51.01 and Frequent urination at night R35.1 [place] [address], [place] [address] Aug, Pilonidal cyst with abscess L05.01 [facility] [id number] [place] [address] Jul, Encounter for immunization Z23 [facility] [id number] [place] [address] Jan, URI (upper respiratory infection) J06.9 [facility] [id number] [place] [address] Jul, Encounter for immunization Z23 [facility] [id number] [place] [address] Jul, [facility] [id number] [place] [address] Jul, Pilonidal cyst with abscess L05.01 [facility] [id number] [place] [address] Jan, [facility] [address] [place] [address] Jan, [facility] [address] [place] [address] Jul, [facility] [address], [place] [address] Jul, [facility] [address] [place] [address] Jul, [facility] [address] [place] [address] [id number] [place] [address] Jul, [facility] [id number] [place] [address] Jul, [facility] [address], [place] [address] Jul, [facility] [id number] [place] [address] Jul, [facility] [address] [facility] [id number] [address] Jul, IMMUNIZATIONS No Known Immunizations SOCIAL HISTORY Never Assessed REASON FOR VISIT [facility] PLAN OF CARE VITAL SIGNS MEDICATIONS No Known Medications RESULTS No Results PROCEDURES No Known procedures INSTRUCTIONS MEDICATIONS ADMINISTERED No Known Medications MEDICAL (GENERAL) HISTORY Type Description Date Medical History pilonidal cyst Medical History Insomnia Medical History Allergic Rhinitis Surgical History Breast Implants 1999 Surgical History hiatal hernia Surgical History salpingectomy 2015 Surgical History umbilical hernia repair 2018 Hospitalization History 04/2015 Hospitalization History Hiatal hernia 1995
--- OUTSIDE RECORDS SUMMARY | 2019-05-15 08:08 | XMS REPORT ---
Author Author A[facility]JANDRA METCALF [facility] [facility] Address [address] [place] [address] Care Team Providers Care Therapist Occupational Name Role Phone ALEJANDRA METCALF Unavailable PROBLEMS Type Condition ICD9-CM Code WVS81-HH Code Onset Dates Condition Status SNOMED Code Problem Acute seasonal allergic rhinitis J30.2 Active 474385396 Problem Hallux valgus (acquired), right foot M20.11 Active 881538794 Problem Seasonal allergic rhinitis due to pollen J30.1 Active 28338256 Problem Primary insomnia F51.01 Active 8239379 Problem Acquired hallux valgus of left foot M20.12 Active 354568722972010 Problem Mixed hyperlipidemia E78.2 Active 404271235 ALLERGIES No Known Allergies ENCOUNTERS Encounter Location Date [facility] [address] [address] Sep, Acute maxillary sinusitis J01.00 [place] [address] [address] Sep, Elevated BUN R79.9 [facility] [address] [address] Sep, Gastroenteritis K52.9 [facility] [address] [address] 02 Aug, 2018 Hallux valgus (acquired), right foot M20.11 and Acquired hallux valgus of left foot M20.12 [facility] [address] [address] Jul, Acute seasonal allergic rhinitis J30.2 [facility] [address] [address] Jul, Uncomplicated epigastric hernia K43.9 [facility] [address] [place] [address] Jul, Yeast infection involving the vagina and surrounding area B37.3 [place] [address] [place] [address] [id number] [place] [address] May, Uncomplicated epigastric hernia K43.9 and Bunion of great toe of left foot M21.612 [place] [address] [place] [id number] [place] [address] Apr, Primary insomnia F51.01 ; Seasonal allergic rhinitis due to pollen J30.1 and Mixed hyperlipidemia E78.2 [place] [id number] [place] [address] February, Acne vulgaris L70.0 [place] [id number] [place] [address] February, Seasonal allergic rhinitis due to pollen J30.1 and Sore throat J02.9 [place] [address] [place] [id number] [place] [address] Dec, Anxiety F41.9 [place] [id number] [place] [address] Dec, [place] [id number] [place] [address] Dec, Encounter for health maintenance examination in adult Z00.00 ; Weight loss R63.4 ; Pilonidal cyst without abscess L05.91 and Changes in vision H53.9 [place] [address] [place] [id number] [place] [address] Oct, Encounter for health maintenance examination in adult Z00.00 ; Pilonidal cyst without abscess L05.91 ; Changes in vision H53.9 ; Weight loss R63.4 ; Primary insomnia F51.01 and Frequent urination at night R35.1 [place] [address] [place] [address] [id number] [place] [address] Aug, Pilonidal cyst with abscess L05.01 [facility] [address], [place] [address] Jul, Encounter for immunization Z23 [facility] [address] [place] [id number] [place] [address] Jan, URI (upper respiratory infection) J06.9 [facility] [address] [place] [id number] [place] [address] Jul, Encounter for immunization Z23 [facility] [address] [place] [id number] [place] [address] Jul, [facility] [address] [place] [id number] [place] [address] Jul, Pilonidal cyst with abscess L05.01 [facility] [address] [place] [id number] [place] [address] Jan, [facility] [address] [id number] [place] [address] Jan, [facility] [address] [place] [id number] [place] [address] Jul, [facility] [address] [place] [id number] [address] Jul, [facility] [address], [place] [address] Jul, [facility] [address], [place] [address] Jul, [facility] [id number] [place] [address] Jul, [facility] [address] [id number] [place] [address] Jul, [facility] [address], [place] [address] Jul, [facility] [address] [facility] [id number] [place] [address] Jul, IMMUNIZATIONS No Known Immunizations SOCIAL HISTORY Never Assessed REASON FOR VISIT Sinus Infection, sinus pressure, headache and runny nose. Pt. feels like her he ad is going to explode.--BRANDON Nunn PLAN OF CARE Activity Details Follow Up if not improving with PCP or reg follow up Reason: VITAL SIGNS Height 64 in 2018-10-18 Weight 165.2 lbs 2018-10-18 Temperature 97.9 degrees Fahrenheit 2018-10-18 Heart Rate 80 bpm 2018-10-18 Respiratory Rate 20 2018-10-18 BMI 28.35 kg/m2 2018-10-18 Blood pressure systolic 104 mmHg 2018-10-18 Blood pressure diastolic 74 mmHg 2018-10-18 MEDICATIONS Medication Instructions Dosage Frequency Start Date End Date Duration Status Melatonin 10 MG Active 28-0.8 MG Active Xyzal Allergy 24HR 5 MG Orally Once a day 1 tablet in the evening 24h 30 day(s) Active PredniSONE 20 MG Orally Once a day 2 tablet 24h Sep, 5 days Active Flonase 50 mcg/act Nasally Once a day 2 spray in each nostril 24h Jul, 30 day(s) Active Amoxicillin-Pot Clavulanate 875-125 MG Orally every 12 hrs 1 tablet 12h Sep, 10 day(s) Active Fluconazole 150 MG Orally every 24 hrs 1 tablet Sep, 3 days Active Dicyclomine HCl 10 mg Orally Four times a day 2 capsules 6h Sep, 3 days Active Zofran ODT 4 MG Orally every 4 hrs 1 tablet on the tongue and allow to dissolve as needed 4h Sep, 5 days Active RESULTS No Results PROCEDURES No Known procedures [...]
--- OUTSIDE RECORDS SUMMARY | 2019-05-15 08:08 | XMS REPORT ---
Author Author Migration, Doctor Organization [facility] Address Unknown Phone Unavailable Care Team Providers Care Laminating Machine Offbearer Name Role Phone Migration, Doctor Unavailable Unavailable PROBLEMS Type Condition ICD9-CM Code EDV14-PI Code Onset Dates Condition Status SNOMED Code Problem Hallux valgus (acquired), right foot M20.11 Active 527548638 Problem Acute seasonal allergic rhinitis J30.2 Active 646663333 Problem Primary insomnia F51.01 Active 1622318 Problem Seasonal allergic rhinitis due to pollen J30.1 Active 50726272 Problem Mixed hyperlipidemia E78.2 Active 618991404 Problem Acquired hallux valgus of left foot M20.12 Active 816326889502844 ALLERGIES No Information ENCOUNTERS Encounter Location Date Diagnosis [facility] [address] [address] Dec, Sore throat J02.9 and Acute nasopharyngitis J00 [facility] [place] [address] [address] Sep, Acute maxillary sinusitis J01.00 [facility] [address] [address] Sep, Elevated BUN R79.9 [facility] [address] [address] Sep, Gastroenteritis K52.9 [facility] [address] [address] Aug, Hallux valgus (acquired), right foot M20.11 and Acquired hallux valgus of left foot M20.12 [facility] [address] [address] Jul, Acute seasonal allergic rhinitis J30.2 [facility] [address] [address] Jul, Uncomplicated epigastric hernia K43.9 [facility] [address] [place] [id number] [place] [address] Jul, Yeast infection involving the vagina and surrounding area B37.3 [place] [address] [place] [id number] [place] [address] May, Uncomplicated epigastric hernia K43.9 and Bunion of great toe of left foot M21.612 [place] [address] [place] [id number] [place] [address] Apr, Primary insomnia F51.01 ; Seasonal allergic rhinitis due to pollen J30.1 and Mixed hyperlipidemia E78.2 [place] [address] [place] [address] [id number] [place] [address] February, Acne vulgaris L70.[address] [address] February, Seasonal allergic rhinitis due to pollen J30.1 and Sore throat J02.9 [place] [id number] [place] [address] Dec, Anxiety F41.9 [place] [address] [place] [address] [id number] [place] [address] Dec, [place] [id number] [place] [address] Dec, Encounter for health maintenance examination in adult Z00.00 ; Weight loss R63.4 ; Pilonidal cyst without abscess L05.91 and Changes in vision H53.[address] [address] Oct, Encounter for health maintenance examination in adult Z00.00 ; Pilonidal cyst without abscess L05.91 ; Changes in vision H53.9 ; Weight loss R63.4 ; Primary insomnia F51.01 and Frequent urination at night R35.1 [place] [address], [place] [address] Aug, Pilonidal cyst with abscess L05.01 [facility] [address] [place] [id number] [place] [address] Jul, Encounter for immunization Z23 [facility] [address] [place] [id number] [place] [address] Jan, URI (upper respiratory infection) J06.9 [facility] [address] [place] [id number] [place] [address] Jul, Encounter for immunization Z23 [facility] [address] [place] [address] [id number] [place] [address] Jul, [facility] [address] [place] [id number] [place] [address] Jul, Pilonidal cyst with abscess L05.01 [facility] [address] [place] [id number] [place] [address] Jan, [facility] [address] [place] [address] Jan, [facility] [address] [place] [address] Jul, [facility] [address], [place] [address] Jul, [facility] [address] [place] [address] Jul, [facility] [address] [place] [id number] [place] [address] Jul, [facility] [address] [place] [address] [id number] [place] [address] Jul, [facility] [address], [place] [address] Jul, [facility] [address] [place] [id number] [place] [address] Jul, [facility] [address] [facility] [id number] [place] [address] Jul, IMMUNIZATIONS No Known Immunizations SOCIAL HISTORY Never Assessed REASON FOR VISIT [facility] [place] [place] PLAN OF CARE VITAL SIGNS MEDICATIONS No [...]
--- OUTSIDE RECORDS SUMMARY | 2019-05-15 08:08 | XMS REPORT ---
Author Author MANOHAR POWELL [facility] Address [address] [place] [address] Care Team Providers Care Shell Machine Operator Name Role Phone MANOHAR POWELL Unavailable PROBLEMS Type Condition ICD9-CM Code ULV34-HB Code Onset Dates Condition Status SNOMED Code Problem Acute seasonal allergic rhinitis J30.2 Active 658833122 Problem Hallux valgus (acquired), right foot M20.11 Active 228150899 Problem Seasonal allergic rhinitis due to pollen J30.1 Active 02401439 Problem Primary insomnia F51.01 Active 8095927 Problem Acquired hallux valgus of left foot M20.12 Active 366235033842456 Problem Mixed hyperlipidemia E78.2 Active 469393873 ALLERGIES No Known Allergies ENCOUNTERS Encounter Location Date Diagnosis [place] [address] [address] Sep, Elevated BUN R79.9 [facility] [address] [address] Sep, Gastroenteritis K52.9 [facility] [address] [address] Aug, Hallux valgus (acquired), right foot M20.11 and Acquired hallux valgus of left foot M20.12 [facility] [address] [place] [id number] [place] [address] Jul, Acute seasonal allergic rhinitis J30.2 [place] [address] [address] Jul, Uncomplicated epigastric hernia K43.9 [facility] [address] [address] Jul, Yeast infection involving the vagina and surrounding area B37.3 [place] [address] [place] [address] May, Uncomplicated epigastric hernia K43.9 and Bunion of great toe of left foot M21.612 [place] [address] [place] [address] Apr, Primary insomnia F51.01 ; Seasonal allergic rhinitis due to pollen J30.1 and Mixed hyperlipidemia E78.2 [place] [address] [place] [id number] [place] [address] February, Acne vulgaris L70.[address] [address] February, Seasonal allergic rhinitis due to pollen J30.1 and Sore throat J02.9 [place] [id number] [place] [address] Dec, Anxiety F41.9 [place] [address] [place] [id number] [place] [address] Dec, [place] [id number] [place] [address] Dec, Encounter for health maintenance examination in adult Z00.00 ; Weight loss R63.4 ; Pilonidal cyst without abscess L05.91 and Changes in vision H53.9 [place] [id number] [place] [address] Oct, Encounter for health maintenance examination in adult Z00.00 ; Pilonidal cyst without abscess L05.91 ; Changes in vision H53.9 ; Weight loss R63.4 ; Primary insomnia F51.01 and Frequent urination at night R35.1 [place] [address] [place] [id number] [place] [address] Aug, Pilonidal cyst with abscess L05.01 [place] [address] [place] [id number] [place] [address] Jul, Encounter for immunization Z23 [facility] [address] [address] Jan, URI (upper respiratory infection) J06.9 [facility] [address] [place] [id number] [address] Jul, Encounter for immunization Z23 [facility] [address] [place] [id number] [place] [address] Jul, [facility] [address] [place] [id number] [place] [address] Jul, Pilonidal cyst with abscess L05.01 [facility] [address] [place] [id number] [place] [address] 14 Jan, 2015 [facility] [address] [place] [id number] [place] [address] Jan, [facility] [address] [place] [address] Jul, [facility] [address] [place] [address] Jul, [facility] [address] [place] [id number] [place] [address] Jul, [facility] [address] [address] Jul, [facility] [address] [place] [address] Jul, [facility] [address] [place] [address] Jul, [facility] [address] [place] [id number] [place] [address] Jul, [facility] [address] [place] [address] Jul, IMMUNIZATIONS No Known Immunizations SOCIAL HISTORY Never Assessed REASON FOR VISIT Diarrhea/fever, shakes, aches; symptoms since 10/01/18 - BRANDON Hancock, LMP: three weeks ago PLAN OF CARE Activity Details Follow Up prn Reason: VITAL SIGNS Height 64 in 2018-10-04 Weight 162.6 lbs 2018-10-04 Temperature 99.1 degrees Fahrenheit 2018-10-04 Heart Rate 120 bpm 2018-10-04 Respiratory Rate 20 2018-10-04 BMI 27.91 kg/m2 2018-10-04 Blood pressure systolic 96 mmHg 2018-10-04 Blood pressure diastolic 60 mmHg 2018-10-04 MEDICATIONS Medication Instructions Dosage Frequency Start Date End Date Duration Status Dicyclomine HCl 10 mg Orally Four times a day 2 capsules 6h Sep, 3 days Active Xyzal Allergy 24HR 5 MG Orally Once a day 1 tablet in the evening 24h 30 day(s) Active Zofran ODT 4 MG Orally every 4 hrs 1 tablet on the tongue and allow to dissolve as needed 4h Sep, 5 days Active 28-0.8 MG Active Melatonin 10 MG Active Flonase 50 mcg/act Nasally Once a day 2 spray in each nostril 24h Jul, 30 day(s) Active RESULTS No Results PROCEDURES No Known [...]
--- OUTSIDE RECORDS SUMMARY | 2019-05-15 08:08 | XMS REPORT ---
Author Author Migration, Doctor Organization [facility] Address Unknown Phone Unavailable Care Team Providers Care Pole Truck Driver Name Role Phone Migration, Doctor Unavailable Unavailable PROBLEMS Type Condition ICD9-CM Code JEY30-UN Code Onset Dates Condition Status SNOMED Code Problem Hallux valgus (acquired), right foot M20.11 Active 515015429 Problem Acute seasonal allergic rhinitis J30.2 Active 906959448 Problem Primary insomnia F51.01 Active 0121623 Problem Seasonal allergic rhinitis due to pollen J30.1 Active 19884254 Problem Mixed hyperlipidemia E78.2 Active 520417261 Problem Acquired hallux valgus of left foot M20.12 Active [id number] ALLERGIES No Information ENCOUNTERS Encounter Location Date Diagnosis [facility] [address] [address] Dec, Sore throat J02.9 and Acute nasopharyngitis J00 [facility] [address] [address] Sep, Acute maxillary sinusitis J01.00 [facility] [place] [address] [address] Sep, Elevated BUN R79.9 [facility] [address] [address] Sep, Gastroenteritis K52.9 [facility] [place] [address] [address] Aug, Hallux valgus (acquired), right foot M20.11 and Acquired hallux valgus of left foot M20.12 [facility] [address] [address] Jul, Acute seasonal allergic rhinitis J30.2 [facility] [place] [address] [address] Jul, Uncomplicated epigastric hernia K43.9 [facility] [address] [place] [id number] [place] [address] Jul, Yeast infection involving the vagina and surrounding area B37.3 [place] [address] [place] [id number] [place] [address] May, Uncomplicated epigastric hernia K43.9 and Bunion of great toe of left foot M21.612 [place] [address] [place] [id number] [place] [address] Apr, Primary insomnia F51.01 ; Seasonal allergic rhinitis due to pollen J30.1 and Mixed hyperlipidemia E78.2 [place] [address] [place] [id number] [place] [address] February, Acne vulgaris L70.[address] [address] February, Seasonal allergic rhinitis due to pollen J30.1 and Sore throat J02.9 [place] [id number] [place] [address] Dec, Anxiety F41.9 [place] [address] [place] [id number] [place] [address] Dec, [place] [id number] [place] [address] Dec, Encounter for health maintenance examination in adult Z00.00 ; Weight loss R63.4 ; Pilonidal cyst without abscess L05.91 and Changes in vision H53.[address] [address] Oct, Encounter for health maintenance examination in adult Z00.00 ; Pilonidal cyst without abscess L05.91 ; Changes in vision H53.9 ; Weight loss R63.4 ; Primary insomnia F51.01 and Frequent urination at night R35.1 [place] [address] [address] Aug, Pilonidal cyst with abscess L05.01 [facility] [place] [address] [place] [id number] [place] [address] Jul, Encounter for immunization Z23 [facility] [place] [address] [place] [id number] [place] [address] Jan, URI (upper respiratory infection) J06.9 [facility] [place] [address] [place] [id number] [place] [address] Jul, Encounter for immunization Z23 [facility] [place] [address] [place] [id number] [place] [address] Jul, [facility] [place] [address] [place] [id number] [place] [address] Jul, Pilonidal cyst with abscess L05.01 [facility] [place] [address] [place] [id number] [place] [address] Jan, [facility] [place] [address] [place] [address] Jan, [facility] [place] [address] [place] [address] Jul, [facility] [place] [address], [place] [address] Jul, [facility] [place] [address] [place] [address] Jul, [facility] [place] [address] [place] [id number] [place] [address] Jul, [facility] [place] [address] [place] [id number] [place] [address] Jul, [facility] [place] [address], [place] [address] Jul, [facility] [place] [address] [place] [id number] [place] [address] Jul, [facility] [place] [address] [facility] [id number] [place] [address] Jul, IMMUNIZATIONS No Known Immunizations SOCIAL HISTORY Never Assessed REASON FOR VISIT [facility] PLAN OF CARE VITAL SIGNS MEDICATIONS Medication Instructions Dosage Frequency Start Date End Date Duration Status Vicoprofen 7.5-200 mg 1 tablet by Oral route every 4 hours PRN Jul, Active PredniSONE 10 mg 1 Tablet 2 times per day for 5 days Take at 8 am and noon. Jul, Active Bactroban 2 % 1 shy by Topical route 2 times per day for 14 day(s) Jul, Active Clindamycin HCl 300 mg take 1 capsule by Oral route 4 times per day for 10 days Jul, Active Diflucan 100 mg 1 tablet by Oral route 1 time per day Jul, Active RESULTS No Results PROCEDURES No Known [...]
--- OUTSIDE RECORDS SUMMARY | 2019-05-15 08:09 | XMS REPORT ---
Author Author KE HUTSON Organization [facility] Address [address] [place] [address] Care Team Providers Care Prison Warden Name Role Phone HUTSONKE Lucia Unavailable PROBLEMS Type Condition ICD9-CM Code IGE07-RA Code Onset Dates Condition Status SNOMED Code Problem Nocturia more than twice per night R35.1 Active 841970537 Problem Pilonidal cyst without abscess L05.91 Active 29169412 Problem Pilonidal cyst with abscess L05.01 Active 34119337 Problem Seasonal allergic rhinitis due to pollen J30.1 Active 14734022 Problem Anxiety F41.9 Active 91343414 Problem Changes in vision H53.9 Active 01019933 Problem Encounter for health maintenance examination in adult Z00.00 Active 372050070 Problem Weight loss R63.4 Active 581887738 Problem Primary insomnia F51.01 Active 8474458 ALLERGIES No Known Allergies SOCIAL HISTORY No smoking Hx information available PLAN OF CARE VITAL SIGNS MEDICATIONS No Known Medications RESULTS Name Result Date Reference Range THYROID ANALYZER 2016-12-01 TSH 3.130 0.450-4.500 A1C 2016-12-01 Hemoglobin A1c 5.0 4.8-5.6 CBC 2016-12-01 WBC 5.2 3.4-10.8 RBC 4.94 3.77-5.28 Hemoglobin 15.0 11.1-15.9 Hematocrit 45.1 34.0-46.6 MCV 91 79-97 MCH 30.4 26.6-33.0 MCHC 33.3 31.5-35.7 RDW 12.7 12.3-15.4 Platelets 208 150-379 Neutrophils 54 Lymphs 30 Monocytes 8 Eos 7 Basos 1 Neutrophils (Absolute) 2.8 1.4-7.0 Lymphs (Absolute) 1.6 0.7-3.1 Monocytes(Absolute) 0.4 0.1-0.9 Eos (Absolute) 0.4 0.0-0.4 Baso (Absolute) 0.0 0.0-0.2 Immature Granulocytes 0 Immature Grans (Abs) 0.0 0.0-0.1 VITAMIN D, 25-H 2016-12-01 Vitamin D, 25-Hydroxy 33.6 30.0-100.0 LIPID PANEL 2016-12-01 Cholesterol, Total 204 100-199 Triglycerides 59 0-149 HDL Cholesterol 55 >39 VLDL Cholesterol Zack 12 5-40 LDL Cholesterol Calc 137 0-99 CMP 2016-12-01 Glucose, Serum 93 65-99 BUN 24 6-20 Creatinine, Serum 0.84 0.57-1.00 eGFR If NonAfricn Am 90 >59 eGFR If Africn Am 103 >59 BUN/Creatinine Ratio 29 8-20 Sodium, Serum 143 134-144 Potassium, Serum 4.6 3.5-5.2 Chloride, Serum 104 96-106 Carbon Dioxide, Total 22 18-29 Calcium, Serum 9.2 8.7-10.2 Protein, Total, Serum 6.4 6.0-8.5 Albumin, Serum 4.4 3.5-5.5 Globulin, Total 2.0 1.5-4.5 A/G Ratio 2.2 1.1-2.5 Bilirubin, Total <0.2 0.0-1.2 Alkaline Phosphatase, S 51 39-117 AST (SGOT) 17 0-40 ALT (SGPT) 18 0-32 PROCEDURES Procedure Date Ordered Related Diagnosis Body Site LAB NOT BILLED BY [facility] Dec 01, 2016 GLYCATED HEMOGLOBIN TEST Dec 01, 2016 VENIPUNCT, ROUTINE* Dec 01, 2016 IMMUNIZATIONS No Known Immunizations
--- OUTSIDE RECORDS SUMMARY | 2019-05-15 08:09 | XMS REPORT ---
Author Author KE HUTSON [facility] Address [address] [place] [address] Care Team Providers Care Steel Inspector Name Role Phone KE HUTSON Unavailable PROBLEMS Type Condition ICD9-CM Code WVD34-TT Code Onset Dates Condition Status SNOMED Code Problem Mixed hyperlipidemia E78.2 Active 671363310 Problem Seasonal allergic rhinitis due to pollen J30.1 Active 61772210 Problem Primary insomnia F51.01 Active 5103416 ALLERGIES No Known Allergies ENCOUNTERS Encounter Location Date Diagnosis [place] [address] [address] Aug, [facility] [address] [address] Jul, Uncomplicated epigastric hernia K43.9 [facility] [address] [address] Jul, Yeast infection involving the vagina and surrounding area B37.3 [facility] [address] [place] [id number] [place] [address] May, Uncomplicated epigastric hernia K43.9 and Bunion of great toe of left foot M21.612 [facility] [address] [address] Apr, Primary insomnia F51.01 ; Seasonal allergic rhinitis due to pollen J30.1 and Mixed hyperlipidemia E78.2 [facility] [address] [address] February, Acne vulgaris L70.0 [place] [address] [address] February, Seasonal allergic rhinitis due to pollen J30.1 and Sore throat J02.9 [place] [address], [place] [address] Dec, Anxiety F41.9 [place] [address] [place] [id number] [place] [address] Dec, [place] [address] [place] [address] Dec, Encounter for health maintenance examination in adult Z00.00 ; Weight loss R63.4 ; Pilonidal cyst without abscess L05.91 and Changes in vision H53.9 [place] [address] [place] [id number] [place] [address] Oct, Encounter for health maintenance examination in adult Z00.00 ; Pilonidal cyst without abscess L05.91 ; Changes in vision H53.9 ; Weight loss R63.4 ; Primary insomnia F51.01 and Frequent urination at night R35.1 [place] [address] [place] [address] Aug, Pilonidal cyst with abscess L05.01 [place] [address] [place] [id number] [place] [address] Jul, Encounter for immunization Z23 [place] [address] [place] [id number] [place] [address] Jan, URI (upper respiratory infection) J06.9 [place] [address] [place] [id number] [place] [address] Jul, Encounter for immunization Z23 [place] [address] [place] [id number] [place] [address] Jul, [place] [address] [place] [id number] [place] [address] Jul, Pilonidal cyst with abscess L05.01 [place] [address] [place] [id number] [place] [address] Jan, [facility] [address] [place] [id number] [address] Jan, [facility] [address] [place] [address] Jul, [facility] [address], [place] [address] Jul, [facility] [address] [place] [id number] [place] [address] Jul, [facility] [address] [place] [id number] [place] [address] Jul, [facility] [address] [place] [id number] [place] [address] Jul, [facility] [address] [place] [id number] [place] [address] Jul, [facility] [address] [place] [address] Jul, [facility] [address], [place] [address] Jul, IMMUNIZATIONS No Known Immunizations SOCIAL HISTORY Never Assessed REASON FOR VISIT Abdominal pain x 3 years. Worried it is a hernia. KBoleRN, Elevated cholesterol at OB appt, states labs should have been faxed here., Bunion on left foot. PLAN OF CARE Activity Details Follow Up 3 Months, prn Reason:CHM/ VITAL SIGNS Height 64 in 2018-06-16 Weight 153.3 lbs 2018-06-16 Temperature 97.7 degrees Fahrenheit 2018-06-16 Heart Rate 76 bpm 2018-06-16 Respiratory Rate 18 2018-06-16 BMI 26.31 kg/m2 2018-06-16 Blood pressure systolic 104 mmHg 2018-06-16 Blood pressure diastolic 66 mmHg 2018-06-16 MEDICATIONS Medication Instructions Dosage Frequency Start Date End Date Duration Status Prilosec OTC 20 mg Orally Once a day 1 tablet 24h Active Benadryl 25 MG Active Melatonin 10 MG Active 28-0.8 MG Active Claritin Active RESULTS Name Result Date Reference Range CT Scan : Abdomen & Pelvis w/ Contrast 2018-07-04 PROCEDURES No Known procedures INSTRUCTIONS MEDICATIONS ADMINISTERED No Known Medications MEDICAL (GENERAL) HISTORY Type Description Date Medical History pilonidal cyst Medical History Insomnia Medical History Allergic Rhinitis Surgical History Breast Implants 1999 Surgical History hiatal hernia Surgical History salpingectomy 2015 Hospitalization History 04/2015 Hospitalization History Hiatal hernia 1995
--- OUTSIDE RECORDS SUMMARY | 2019-05-15 08:09 | XMS REPORT ---
Author Author KE HUTSNO Organization [facility] Address [address] [place] [address] Care Team Providers Care Tape Controlled Machine Stitcher Name Role Phone KE HUTSON Unavailable PROBLEMS Type Condition ICD9-CM Code MUI87-HA Code Onset Dates Condition Status SNOMED Code Problem Nocturia more than twice per night R35.1 Active 919179981 Problem Pilonidal cyst without abscess L05.91 Active 55134885 Problem Pilonidal cyst with abscess L05.01 Active 10888167 Problem Seasonal allergic rhinitis due to pollen J30.1 Active 60721201 Problem Anxiety F41.9 Active 44214096 Problem Changes in vision H53.9 Active 62757643 Problem Encounter for health maintenance examination in adult Z00.00 Active 584839651 Problem Weight loss R63.4 Active 039896361 Problem Primary insomnia F51.01 Active 4357399 ALLERGIES No Known Allergies SOCIAL HISTORY Never Assessed PLAN OF CARE Activity Details Follow Up 3 Months, prn Reason:CHM VITAL SIGNS Height 64 in 2016-12-28 Weight 168.3 lbs 2016-12-28 Temperature 97.9 degrees Fahrenheit 2016-12-28 Heart Rate 90 bpm 2016-12-28 Respiratory Rate 18 2016-12-28 BMI 28.89 kg/m2 2016-12-28 Blood pressure systolic 122 mmHg 2016-12-28 Blood pressure diastolic 83 mmHg 2016-12-28 MEDICATIONS Medication Instructions Dosage Frequency Start Date End Date Duration Status Benadryl 25 MG Active 28-0.8 MG Active Melatonin 10 MG Active RESULTS No Results PROCEDURES No Known procedures IMMUNIZATIONS No Known Immunizations MEDICAL (GENERAL) HISTORY Type Description Date Medical History pilonidal cyst Surgical History Breast Implants 1999 Surgical History hiatal hernia Surgical History salpingectomy 2016 Hospitalization History 04/2015 Hospitalization History Hiatal hernia 1995
--- OUTSIDE RECORDS SUMMARY | 2019-05-15 08:09 | XMS REPORT ---
Author Author KE HUTSON [facility] Address [address] [place] [address] Care Team Providers Care Surfacer Operator Name Role Phone KE HUTSON Unavailable PROBLEMS Type Condition ICD9-CM Code AFC24-QL Code Onset Dates Condition Status SNOMED Code Problem Mixed hyperlipidemia E78.2 Active 345756909 Problem Seasonal allergic rhinitis due to pollen J30.1 Active 56581267 Problem Primary insomnia F51.01 Active 0050231 ALLERGIES No Information ENCOUNTERS Encounter Location Date Diagnosis [place] [id number] [address] Aug, [facility] [address] [address] Jul, Uncomplicated epigastric hernia K43.9 [facility] [address] [address] Jul, Yeast infection involving the vagina and surrounding area B37.3 [facility] [address] [address] May, Uncomplicated epigastric hernia K43.9 and Bunion of great toe of left foot M21.612 [facility] [address] [address] Apr, Primary insomnia F51.01 ; Seasonal allergic rhinitis due to pollen J30.1 and Mixed hyperlipidemia E78.2 [facility] [address] [address] February, Acne vulgaris L70.0 [facility] [address] [address] February, Seasonal allergic rhinitis due to pollen J30.1 and Sore throat J02.9 [facility] [address] [place] [address] Dec, Anxiety F41.9 [facility] [address] [place] [id number] [place] [address] Dec, [place] [address] [place] [id number] [place] [address] Dec, Encounter for health maintenance examination in adult Z00.00 ; Weight loss R63.4 ; Pilonidal cyst without abscess L05.91 and Changes in vision H53.9 [place] [address] [place] [id number] [place] [address] Oct, Encounter for health maintenance examination in adult Z00.00 ; Pilonidal cyst without abscess L05.91 ; Changes in vision H53.9 ; Weight loss R63.4 ; Primary insomnia F51.01 and Frequent urination at night R35.1 [place] [address] [place] [id number] [place] [address] Aug, Pilonidal cyst with abscess L05.01 [place] [address] [place] [id number] [place] [address] Jul, Encounter for immunization Z23 [place] [address] [place] [id number] [place] [address] Jan, URI (upper respiratory infection) J06.9 [place] [address] [place] [id number] [place] [address] Jul, Encounter for immunization Z23 [place] [address] [place] [id number] [place] [address] Jul, [place] [address] [place] [id number] [place] [address] Jul, Pilonidal cyst with abscess L05.01 [facility] [address] [place] [id number] [place] [address] Jan, [facility] [address] [facility] [id number] [address] Jan, [facility] [address] [address] Jul, [facility] [address] [facility] [id number], [place] [address] Jul, [facility] [address] [address] Jul, [facility] [address] [facility] [id number], [place] [address] Jul, [facility] [address] [address] Jul, [facility] [address] [address] Jul, [facility] [address] [address] Jul, [facility] [address] [place] [id number] [address] Jul, IMMUNIZATIONS No Known Immunizations SOCIAL HISTORY Never Assessed REASON FOR VISIT Request return call PLAN OF CARE VITAL SIGNS MEDICATIONS Unknown Medications RESULTS No Results PROCEDURES No Known procedures INSTRUCTIONS MEDICATIONS ADMINISTERED No Known Medications MEDICAL (GENERAL) HISTORY Type Description Date Medical History pilonidal cyst Medical History Insomnia Medical History Allergic Rhinitis Surgical History Breast Implants 1999 Surgical History hiatal hernia Surgical History salpingectomy 2016 Hospitalization History 04/2015 Hospitalization History Hiatal hernia 1995
--- OUTSIDE RECORDS SUMMARY | 2019-05-15 08:09 | XMS REPORT ---
Author Author WING VERMA Organization e[employer] Address Unknown Phone Unavailable Care Team Providers Care Flat Spring Assembler Name Role Phone WING VERMA Unavailable Allergies No Known Allergies Problems Problem Type Condition Code Onset Dates Condition Status Problem Unspecified disorder of skin and subcutaneous tissue 709.9 Active Problem Edema of eyelid 374.82 Active Problem Pilonidal cyst with abscess L05.01 Active Problem Unspecified backache 724.5 Active Medications Medication Code System Code Instructions Start Date End Date Status Dosage Clindamycin HCl [facility] [address]-44 300 MG Orally every 8 hrs Aug 04, 2015 Aug 14, 2015 1 capsule Results No Known Results Summary Purpose eClinicalWorks Submission
--- OUTSIDE RECORDS SUMMARY | 2019-05-15 08:09 | XMS REPORT ---
Author Author HERMAN PALUMBO [facility] Address [address] [place] [address] Care Team Providers Care Logistics System Engineer Name Role Phone HERMAN PALUMBO Unavailable PROBLEMS Type Condition ICD9-CM Code HUG89-KC Code Onset Dates Condition Status SNOMED Code Problem Mixed hyperlipidemia E78.2 Active 367267585 Problem Seasonal allergic rhinitis due to pollen J30.1 Active 66917035 Problem Primary insomnia F51.01 Active 4104401 ALLERGIES No Known Allergies ENCOUNTERS Encounter Location Date Diagnosis [place] [address] [address] Aug, [place] [address] [address] Jul, Uncomplicated epigastric hernia K43.9 [facility] [address] [address] Jul, Yeast infection involving the vagina and surrounding area B37.3 [place] [address] [address] May, Uncomplicated epigastric hernia K43.9 and Bunion of great toe of left foot M21.612 [place] [address] [address] Apr, Primary insomnia F51.01 ; Seasonal allergic rhinitis due to pollen J30.1 and Mixed hyperlipidemia E78.2 [place] [address] [address] February, Acne vulgaris L70.0 [place] [address] [address] February, Seasonal allergic rhinitis due to pollen J30.1 and Sore throat J02.9 [place] [address] [address] Dec, Anxiety F41.9 [place] [address] [place] [id number] [place] [address] Dec, [place] [address] [place] [address] Dec, Encounter for health maintenance examination in adult Z00.00 ; Weight loss R63.4 ; Pilonidal cyst without abscess L05.91 and Changes in vision H53.9 [place] [address] [place] [id number] [place] [address] Oct, Encounter for health maintenance examination in adult Z00.00 ; Pilonidal cyst without abscess L05.91 ; Changes in vision H53.9 ; Weight loss R63.4 ; Primary insomnia F51.01 and Frequent urination at night R35.1 [place] [address] [place] [id number] [place] [address] Aug, Pilonidal cyst with abscess L05.01 [place] [address] [place] [id number] [place] [address] Jul, Encounter for immunization Z23 [place] [address] [place] [id number] [place] [address] Jan, URI (upper respiratory infection) J06.9 [place] [address] [place] [id number] [place] [address] Jul, Encounter for immunization Z23 [place] [address] [place] [address] Jul, [place] [address] [place] [id number] [place] [address] Jul, Pilonidal cyst with abscess L05.01 [place] [address] [place] [id number] [place] [address] Jan, [facility] [address] [place] [id number] [address] Jan, [facility] [address] [address] Jul, [facility] [address] [address] Jul, [facility] [address] [address] Jul, [facility] [address] [address] Jul, [facility] [address] [address] Jul, [facility] [address] [address] Jul, [facility] [address] [address] Jul, [facility] [address] [place] [id number] [address] Jul, IMMUNIZATIONS No Known Immunizations SOCIAL HISTORY Never Assessed REASON FOR VISIT yeast infection-vaginal itching x 2 days with soreness. Pt has not tried OTC med s.--BRANDON Nunn PLAN OF CARE Activity Details Follow Up 1 Week, prn Reason:if symptoms worsen or not improving VITAL SIGNS Height 64 in 2018-07-04 Weight 155.4 lbs 2018-07-04 Temperature 97.8 degrees Fahrenheit 2018-07-04 Heart Rate 76 bpm 2018-07-04 Respiratory Rate 20 2018-07-04 BMI 26.67 kg/m2 2018-07-04 Blood pressure systolic 110 mmHg 2018-07-04 Blood pressure diastolic 80 mmHg 2018-07-04 MEDICATIONS Medication Instructions Dosage Frequency Start Date End Date Duration Status Benadryl 25 MG Active Claritin Active Fluconazole 150 MG Orally once a day Take 1 tablet today and the second tablet in 3 days 24h Jul, Jul, 2 doses Active 28-0.8 MG Active Melatonin 10 MG Active Prilosec OTC 20 mg Orally Once a day 1 tablet 24h Active RESULTS No Results PROCEDURES No Known procedures INSTRUCTIONS MEDICATIONS ADMINISTERED No Known Medications MEDICAL (GENERAL) HISTORY Type Description Date Medical History pilonidal cyst Medical History Insomnia Medical History Allergic Rhinitis Surgical History Breast Implants 1999 Surgical History hiatal hernia Surgical History salpingectomy 2015 Hospitalization History 04/2015 Hospitalization History Hiatal hernia 1995
--- OUTSIDE RECORDS SUMMARY | 2019-05-15 08:09 | XMS REPORT ---
Author Author RAEANN CASTRO [facility] Address [address] [place] [address] Care Team Providers Care Metal Turner Name Role Phone SPEAR RAEANN TSAI Unavailable PROBLEMS Type Condition ICD9-CM Code ICE62-QG Code Onset Dates Condition Status SNOMED Code Problem Acute seasonal allergic rhinitis J30.2 Active 630919999 Problem Mixed hyperlipidemia E78.2 Active 920524979 Problem Seasonal allergic rhinitis due to pollen J30.1 Active 20268417 Problem Primary insomnia F51.01 Active 7941186 ALLERGIES No Known Allergies ENCOUNTERS Encounter Location Date Diagnosis [address] [address] Aug, [facility] [address] [address] Jul, Acute seasonal allergic rhinitis J30.[address] [address] Jul, Uncomplicated epigastric hernia K43.9 [facility] [address] [address] Jul, Yeast infection involving the vagina and surrounding area B37.3 [facility] [address] [place] [address] May, Uncomplicated epigastric hernia K43.9 and Bunion of great toe of left foot M21.[address] [address] Apr, Primary insomnia F51.01 ; Seasonal allergic rhinitis due to pollen J30.1 and Mixed hyperlipidemia E78.[address] [address] February, Acne vulgaris L70.0 [place] [address] [place] [id number] [place] [address] February, Seasonal allergic rhinitis due to pollen J30.1 and Sore throat J02.9 [place] [address] [place] [id number] [place] [address] Dec, Anxiety F41.9 [place] [address] [address] Dec, [place] [address] [place] [id number] [place] [address] Dec, Encounter for health maintenance examination in adult Z00.00 ; Weight loss R63.4 ; Pilonidal cyst without abscess L05.91 and Changes in vision H53.9 [place] [address] [place] [id number] [place] [address] Oct, Encounter for health maintenance examination in adult Z00.00 ; Pilonidal cyst without abscess L05.91 ; Changes in vision H53.9 ; Weight loss R63.4 ; Primary insomnia F51.01 and Frequent urination at night R35.1 [place] [address] [place] [id number] [place] [address] Aug, Pilonidal cyst with abscess L05.01 [place] [address] [place] [id number] [place] [address] Jul, Encounter for immunization Z23 [place] [address] [place] [id number] [place] [address] Jan, URI (upper respiratory infection) J06.9 [place] [address] [place] [id number] [place] [address] Jul, Encounter for immunization Z23 [place] [address] [place] [id number] [place] [address] Jul, [place] [address] [place] [id number] [place] [address] Jul, Pilonidal cyst with abscess L05.01 [facility] [address], [place] [address] 14 Jan, 2015 [facility] [address], [place] [address] 13 Jan, 2014 [facility] [address], [place] [address] Jul, [facility] [address], [place] [address] Jul, [facility] [address] [place] [id number] [place] [address] Jul, [facility] [address] [place] [address] Jul, [facility] [address] [place] [id number] [place] [address] Jul, [facility] [address] [place] [address] Jul, [facility] [address], [place] [address] Jul, [facility] [address], [place] [address] Jul, IMMUNIZATIONS Vaccine Route Administration Date Status DEXAMETHASONE 4MG/ML (PER 1 MG) IM Intramuscular Aug 22, 2018 Administered DEPO MEDROL 80 MG/ML IM Intramuscular Aug 22, 2018 Administered SOCIAL HISTORY Never Assessed REASON FOR VISIT runny nose, bilateral earache, cough, congestion for the past 2 days. [email or web address] PLAN OF CARE Activity Details Follow Up as needed or reg fu with pcp Reason: VITAL SIGNS Height 64 in 2018-08-22 Weight 158.4 lbs 2018-08-22 Temperature 98.0 degrees Fahrenheit 2018-08-22 Heart Rate 70 bpm 2018-08-22 Respiratory Rate 20 2018-08-22 BMI 27.19 kg/m2 2018-08-22 Blood pressure systolic 114 mmHg 2018-08-22 Blood pressure diastolic 76 mmHg 2018-08-22 MEDICATIONS Medication Instructions Dosage Frequency Start Date End Date Duration Status Xyzal Allergy 24HR 5 MG Orally Once a day 1 tablet in the evening 24h 30 day(s) Active Melatonin 10 MG Active 28-0.8 MG Active Flonase 50 mcg/act Nasally Once a day 2 spray in each nostril 24h Jul, 30 day(s) Active RESULTS No Results PROCEDURES Procedure Date Ordered Result Body Site DEXAMETHASONE 4MG/ML (PER 1 MG) Aug 22, 2018 THER/PROPH/DIAG INJ, SC/IM Aug 22, 2018 DEPO MEDROL 80 MG/ML Aug 22, 2018 INSTRUCTIONS MEDICATIONS ADMINISTERED No Known Medications MEDICAL (GENERAL) HISTORY Type Description Date Medical History pilonidal cyst Medical History Insomnia Medical History Allergic Rhinitis Surgical History Breast Implants 1999 Surgical History hiatal hernia Surgical History salpingectomy 2015 Surgical History umbilical hernia repair 2018 Hospitalization History 04/2015 Hospitalization History Hiatal hernia 1996
--- OUTSIDE RECORDS SUMMARY | 2019-05-15 08:09 | XMS REPORT ---
Author Author LAEJANDRA CUEVA [facility] eClinicalWorks Address Unknown Phone Unavailable Care Team Providers Care Moveman Name Role Phone ALEJANDRA CUEVA CP Unavailable Allergies, Adverse Reactions, Alerts Substance Reaction Event Type N.K.D.A. Info Not Available Non Drug Allergy Problems Problem Type Condition Code Onset Dates Condition Status Problem Unspecified disorder of skin and subcutaneous tissue 709.9 Active Problem Edema of eyelid 374.82 Active Problem Pilonidal cyst with abscess L05.01 Active Problem Unspecified backache 724.5 Active Assessment URI (upper respiratory infection) J06.9 Active Medications No Known Medications Procedures Procedure Coding System Code Date Office Visit, Est Pt., Level 2 CPT-4 19555 February 19, 2016 Vital Signs Date/Time: February 19, 2016 Temperature 98.3 F Weight 192 lbs Height 64 in BMI 32.95 Index Blood Pressure Diastolic 82 mmHg Blood Pressure Systolic 120 mmHg Cardiac Monitoring Heart Rate 72 bpm Results No Known Results Summary Purpose eClinicalWorks Submission
--- OUTSIDE RECORDS SUMMARY | 2019-05-15 08:09 | XMS REPORT ---
Author Author WING VERMA Organization e[employer] Address Unknown Phone Unavailable Care Team Providers Care Day Care Aide Name Role Phone WING VERMA CP Unavailable Allergies, Adverse Reactions, Alerts Substance Reaction Event Type N.K.D.A. Info Not Available Non Drug Allergy Problems Problem Type Condition Code Onset Dates Condition Status Problem Unspecified disorder of skin and subcutaneous tissue 709.9 Active Problem Edema of eyelid 374.82 Active Problem Pilonidal cyst with abscess L05.01 Active Problem Unspecified backache 724.5 Active Assessment Pilonidal cyst with abscess L05.01 Active Medications Medication Code System Code Instructions Start Date End Date Status Dosage [facility] [address] 28-0.8 MG Orally not defined Sulfamethoxazole-Trimethoprim [facility] [address]-18 800-160 MG Orally 2 times a day Aug 01, 2015 Aug 11, 2015 1 tablet Bactroban [facility] [address]-40 2 % Externally 2 times a day Aug 01, 2015 Aug 11, 2015 1 application to affected area Procedures Procedure Coding System Code Date Office Visit, Est Pt., Level 3 CPT-4 75085 Aug 01, 2015 Vital Signs Date/Time: Aug 01, 2015 Temperature 98.4 F Weight 224 lbs Height 64 in BMI 38.45 Index Blood Pressure Diastolic 70 mmHg Blood Pressure Systolic 110 mmHg Cardiac Monitoring Heart Rate 102 bpm Results No Known Results Summary Purpose eClinicalWorks Submission
--- OUTSIDE RECORDS SUMMARY | 2019-05-15 08:09 | XMS REPORT ---
Author Author KE HUTSON [facility] Address [address] [place] [address] Care Team Providers Care Fabricator Assembler Metal Products Name Role Phone KE HUTSON Unavailable PROBLEMS Type Condition ICD9-CM Code ETY24-SV Code Onset Dates Condition Status SNOMED Code Problem Mixed hyperlipidemia E78.2 Active 878635576 Problem Seasonal allergic rhinitis due to pollen J30.1 Active 34335903 Problem Primary insomnia F51.01 Active 4405670 ALLERGIES No Known Allergies ENCOUNTERS Encounter Location Date Diagnosis [facility] [address] [address] Aug, [facility] [address] [address] Jul, Yeast infection involving the vagina and surrounding area B37.3 [facility] [address] [address] May, Uncomplicated epigastric hernia K43.9 and Bunion of great toe of left foot M21.612 [facility] [address] [address] Apr, Primary insomnia F51.01 ; Seasonal allergic rhinitis due to pollen J30.1 and Mixed hyperlipidemia E78.2 [facility] [address] [place] [id number] [place] [address] February, Acne vulgaris L70.0 [place] [address] [address] February, Seasonal allergic rhinitis due to pollen J30.1 and Sore throat J02.9 [place] [address] [address] Dec, Anxiety F41.9 [place] [address] [place] [address] Dec, [place] [address] [place] [id number] [place] [address] Dec, Encounter for health maintenance examination in adult Z00.00 ; Weight loss R63.4 ; Pilonidal cyst without abscess L05.91 and Changes in vision H53.9 [place] [address] [place] [id number] [place] [address] Oct, Encounter for health maintenance examination in adult Z00.00 ; Pilonidal cyst without abscess L05.91 ; Changes in vision H53.9 ; Weight loss R63.4 ; Primary insomnia F51.01 and Frequent urination at night R35.1 [place] [address] [place] [id number] [place] [address] Aug, Pilonidal cyst with abscess L05.01 [place] [address] [place] [id number] [place] [address] Jul, Encounter for immunization Z23 [place] [address] [place] [id number] [place] [address] Jan, URI (upper respiratory infection) J06.9 [place] [address] [place] [address] Jul, Encounter for immunization Z23 [place] [address] [place] [address] Jul, [place] [address] [place] [address] Jul, Pilonidal cyst with abscess L05.01 [facility] [address] [place] [address] 14 Jan, 2015 [place] [address] [place] [address] Jan, [place] [address], [place] [address] Jul, [facility] [address] [place] [id number], [place] [address] Jul, [facility] [address], [place] [address] Jul, [facility] [address], [place] [address] Jul, [facility] [address], [place] [address] Jul, [facility] [address], [place] [address] Jul, [facility] [address], [place] [address] Jul, [facility] [address], [place] [address] Jul, IMMUNIZATIONS No Known Immunizations SOCIAL HISTORY Never Assessed REASON FOR VISIT Pt states her labs for cholesterol at her OB office was elevated-AHarrymanRN PLAN OF CARE Activity Details Follow Up 6 Months, prn Reason:CHM/insomnia VITAL SIGNS Height 64 in 2018-05-23 Weight 157.1 lbs 2018-05-23 Temperature 97.4 degrees Fahrenheit 2018-05-23 Heart Rate 64 bpm 2018-05-23 Respiratory Rate 18 2018-05-23 BMI 26.96 kg/m2 2018-05-23 Blood pressure systolic 112 mmHg 2018-05-23 Blood pressure diastolic 68 mmHg 2018-05-23 MEDICATIONS Medication Instructions Dosage Frequency Start Date End Date Duration Status Benadryl 25 MG Active 28-0.8 MG Active Claritin Active Prilosec OTC 20 mg Orally Once a day 1 tablet 24h Active Melatonin 10 MG Active RESULTS No Results PROCEDURES No Known procedures INSTRUCTIONS MEDICATIONS ADMINISTERED No Known Medications MEDICAL (GENERAL) HISTORY Type Description Date Medical History pilonidal cyst Medical History Insomnia Medical History Allergic Rhinitis Surgical History Breast Implants 1999 Surgical History hiatal hernia Surgical History salpingectomy 2015 Hospitalization History 04/2015 Hospitalization History Hiatal hernia 1995
--- OUTSIDE RECORDS SUMMARY | 2019-05-15 08:10 | XMS REPORT ---
Author DAMIAN Paulson [facility] [employer] Address Unknown Phone Unavailable Care Team Providers Care Station Attendant Name Role Phone DAMIAN VILLANUEVA CP Unavailable Allergies No Known Allergies Problems Problem Type Condition Code Onset Dates Condition Status Problem Unspecified disorder of skin and subcutaneous tissue 709.9 Active Problem Edema of eyelid 374.82 Active Problem Pilonidal cyst with abscess L05.01 Active Problem Unspecified backache 724.5 Active Assessment Encounter for immunization Z23 Active Medications No Known Medications Procedures Procedure Coding System Code Date SINGLE IMMUNIZATION ADMIN CPT-4 01693 Aug 18, 2016 FLUARIX QUAD P-FREE 3 AND UP .50 2015 CPT-4 65996 Aug 18, 2016 Results No Known Results Immunizations Vaccine Administration Date FLUARIX QUAD P-FREE 3 AND UP .50 2015Aug 18, 2016 Summary Purpose eClinicalWorks Submission
--- OUTSIDE RECORDS SUMMARY | 2019-05-15 08:10 | XMS REPORT ---
Author WING Mckeon Organization [employer] Address Unknown Phone Unavailable Care Team Providers Care Physical Education Department Chair Name Role Phone WING VERMA Unavailable Allergies [...] System Code Date SINGLE IMMUNIZATION ADMIN CPT-4 53510 Aug 15, 2015 FLUARIX QUAD (3 & UP)-GSK-2014 CPT-4 19023 Aug 15, 2015 Results No Known Results Immunizations Vaccine Administration Date FLUARIX QUAD (3 & UP)-GSK-2014Aug 15, 2015 Summary Purpose eClinicalWorks Submission
--- OUTSIDE RECORDS SUMMARY | 2019-05-15 08:10 | XMS REPORT ---
Author Author HUTSONKE Lucia Organization [facility] Address [address] [place] [address] Care Team Providers Care Measurement Specialist Name Role Phone HUTSONKE Lucia Unavailable PROBLEMS Type Condition ICD9-CM Code CIC66-NW Code Onset Dates Condition Status SNOMED Code Problem Nocturia more than twice per night R35.1 Active 276577487 Problem Pilonidal cyst without abscess L05.91 Active 25396625 Problem Pilonidal cyst with abscess L05.01 Active 99726930 Problem Seasonal allergic rhinitis due to pollen J30.1 Active 73412466 Problem Anxiety F41.9 Active 83097311 Problem Changes in vision H53.9 Active 34519554 Problem Encounter for health maintenance examination in adult Z00.00 Active 541327062 Problem Weight loss R63.4 Active 258916375 Problem Primary insomnia F51.01 Active 7403059 ALLERGIES No Information SOCIAL HISTORY Never Assessed PLAN OF CARE VITAL SIGNS MEDICATIONS No Known Medications RESULTS No Results PROCEDURES No Known procedures IMMUNIZATIONS No Known Immunizations MEDICAL (GENERAL) HISTORY Type Description Date Medical History pilonidal cyst Surgical History Breast Implants 1999 Surgical History hiatal hernia Surgical History salpingectomy 2016 Hospitalization History 04/2015 Hospitalization History Hiatal hernia 1995
--- OUTSIDE RECORDS SUMMARY | 2019-05-15 08:10 | XMS REPORT | Continuity of Care Document ---
Author Organization Unknown Address Unknown Allergies Active Description Code Type Severity Reaction Onset Reported/Identified Relationship to Patient Clinical Status Yes No Known Drug Allergies [id number] Drug Allergy Unknown N/A 07/26/2018 Medications There is no data. Problems Date Dx Coded Attending Type Code Diagnosis Diagnosed By 08/08/2014 DAMIAN VILLANUEVA DO 374.82 EDEMA OF EYELID 08/08/2014 DAMIAN VILLANUEVA DO 709.9 UNSPECIFIED DISORDER OF SKIN AND SUBCUTANEOUS TISSUE 08/08/2014 DAMIAN VILLANUEVA DO 724.5 BACKACHE UNSPECIFIED 08/12/2014 IMAN KRAMER DO Ot 373.13 ABSCESS OF EYELID 08/12/2014 IMAN KRAMER DO Ot 379.93 REDNESS/DISCHARGE OF EYE 07/05/2018 KE HUTSON QM NURSE Ot K43.9 VENTRAL HERNIA WITHOUT OBSTRUCTION OR GA 07/05/2018 KE HUTSON QM NURSE Ot N83.202 UNSPECIFIED OVARIAN CYST, LEFT SIDE 07/24/2018 KE HUTSON QM NURSE Ot K43.9 VENTRAL HERNIA WITHOUT OBSTRUCTION OR GA 07/24/2018 KE HUTSON QM NURSE Ot N83.202 UNSPECIFIED OVARIAN CYST, LEFT SIDE 07/26/2018 TIMO DAVALOS DO Ot Z01.818 ENCOUNTER FOR OTHER PREPROCEDURAL EXAMIN 07/27/2018 TIMO DAVALOS DO Ot K43.2 INCISIONAL HERNIA WITHOUT OBSTRUCTION OR 07/31/2018 TIMO DAVALOS DO Ot Z01.818 ENCOUNTER FOR OTHER PREPROCEDURAL EXAMIN 08/12/2018 TIMO DAVALOS DO Ot K43.2 INCISIONAL HERNIA WITHOUT OBSTRUCTION OR Procedures Code Description [place] [address] CULTURE WOUND (AEROBIC) 08/11/2014 11983 I/D SIMPLE ABSCESS 09/03/2014 Results Test Result Range CBC With Differential/Platelet - 12/01/16 08:17 WBC 5.2 x10E3/uL 3.4-10.8 RBC 4.94 x10E6/uL 3.77-5.28 Hemoglobin 15.0 g/dL 11.1-15.9 Hematocrit 45.1 % 34.0-46.6 MCV 91 fL 79-97 MCH 30.4 pg 26.6-33.0 MCHC 33.3 g/dL 31.5-35.7 RDW 12.7 % 12.3-15.4 Platelets 208 x10E3/uL 150-379 Neutrophils 54 % Lymphs 30 % Monocytes 8 % Eos 7 % Basos 1 % Neutrophils (Absolute) 2.8 x10E3/uL 1.4-7.0 Lymphs (Absolute) 1.6 x10E3/uL 0.7-3.1 Monocytes(Absolute) 0.4 x10E3/uL 0.1-0.9 Eos (Absolute) 0.4 x10E3/uL 0.0-0.4 Baso (Absolute) 0.0 x10E3/uL 0.0-0.2 Immature Granulocytes 0 % Immature Grans (Abs) 0.0 x10E3/uL 0.0-0.1 Comp. Metabolic Panel (14) - 12/01/16 08:17 Glucose, Serum 93 mg/dL 65-99 BUN 24 mg/dL 6-20 Creatinine, Serum 0.84 mg/dL 0.57-1.00 eGFR If NonAfricn Am 90 mL/min/1.73 >59 eGFR If Africn Am 103 mL/min/1.73 >59 BUN/Creatinine Ratio 29 8-20 Sodium, Serum 143 mmol/L 134-144 Potassium, Serum 4.6 mmol/L 3.5-5.2 Chloride, Serum 104 mmol/L 96-106 Carbon Dioxide, Total 22 mmol/L 18-29 Calcium, Serum 9.2 mg/dL 8.7-10.2 Protein, Total, Serum 6.4 g/dL 6.0-8.5 Albumin, Serum 4.4 g/dL 3.5-5.5 Globulin, Total 2.0 g/dL 1.5-4.5 A/G Ratio 2.2 1.1-2.5 Bilirubin, Total <0.2 mg/dL 0.0-1.2 Alkaline Phosphatase, S 51 IU/L 39-117 AST (SGOT) 17 IU/L 0-40 ALT (SGPT) 18 IU/L 0-32 Lipid Panel - 12/01/16 08:17 Cholesterol, Total 204 mg/dL 100-199 Triglycerides 59 mg/dL 0-149 HDL Cholesterol 55 mg/dL >39 VLDL Cholesterol Zack 12 mg/dL 5-40 LDL Cholesterol Calc 137 mg/dL 0-99 Hemoglobin A1c - 12/01/16 08:17 Hemoglobin A1c 5.0 % 4.8-5.6 Vitamin D, 25-Hydroxy - 12/01/16 08:17 Vitamin D, 25-Hydroxy 33.6 ng/mL 30.0-100.0 Thyroid [place] Profile - 12/01/16 08:17 TSH 3.130 uIU/mL 0.450-4.500 Urine beta human chorionic gonadotropin (hCG) measurement - 07/27/18 11:07 Urine beta human chorionic gonadotropin (hCG) measurement NEGATIVE NEGATIVE Methicillin resistant Staphylococcus aureus (MRSA) screening culture - 07/27/18 11:07 Methicillin resistant Staphylococcus aureus (MRSA) screening culture NEG NRG Complete blood count (CBC) with automated white blood cell (WBC) differential - 07/27/18 11:20 Blood leukocytes automated count (number/volume) 7.7 10*3/uL 4.3-11.0 Blood erythrocytes automated count (number/volume) 4.50 10*6/uL 4.35-5.85 Venous blood hemoglobin measurement (mass/volume) 13.7 g/dL 11.5-16.0 Blood hematocrit (volume fraction) 42 % 35-52 Automated erythrocyte mean corpuscular volume 92 [foz_us] 80-99 Automated erythrocyte mean corpuscular hemoglobin (mass per erythrocyte) 30 pg 25-34 Automated erythrocyte mean corpuscular hemoglobin concentration measurement (mass/volume) 33 g/dL 32-36 Automated erythrocyte distribution width ratio 13.8 % 10.0- 14.5 Automated blood platelet count (count/volume) 176 10*3/uL 130-400 Automated blood platelet mean volume measurement 11.5 [foz_us] 7.4-10.4 Automated blood neutrophils/100 leukocytes 75 % 42-75 Automated blood lymphocytes/100 leukocytes 14 % 12-44 Blood monocytes/100 leukocytes 7 % 0-12 Automated blood eosinophils/100 leukocytes 3 % 0-10 Automated blood basophils/100 leukocytes 0 % 0-10 Blood neutrophils automated count (number/volume) 5.8 10*3 1.8-7.8 Blood lymphocytes automated count (number/volume) 1.1 10*3 1.0-4.0 Blood monocytes automated count (number/volume) 0.6 10*3 0.0- 1.0 Automated eosinophil count 0.3 10*3/uL 0.0-0.3 Automated blood basophil count (count/volume) 0.0 10*3/uL 0.0-0.1 Urine beta human chorionic gonadotropin (hCG) measurement - 08/30/18 21:03 Urine beta human chorionic gonadotropin (hCG) measurement NEGATIVE NEGATIVE Complete urinalysis with reflex to culture - 08/30/18 21:03 Urine color determination YELLOW NRG Urine clarity determination CLEAR NRG Urine pH measurement by test strip 7 5-9 Specific gravity of urine by test strip 1.015 1.016-1.022 Urine protein assay by test strip, semi-quantitative NEGATIVE NEGATIVE Urine glucose detection by automated test strip NEGATIVE NEGATIVE Erythrocytes detection in urine sediment by light microscopy NEGATIVE NEGATIVE Urine ketones detection by automated test strip 1+ NEGATIVE Urine nitrite detection by test strip POSITIVE NEGATIVE Urine total bilirubin detection by test strip NEGATIVE NEGATIVE Urine urobilinogen measurement by automated test strip (mass/volume) 1 mg/dL NORMAL Urine leukocyte esterase detection by dipstick 2+ NEGATIVE Automated urine sediment erythrocyte count by microscopy (number/high power field) NONE NRG Automated urine sediment leukocyte count by microscopy (number/high power field) [HPF] NRG Bacteria detection in urine sediment by light microscopy TRACE NRG Squamous epithelial cells detection in urine sediment by light microscopy 2-5 NRG Crystals detection in urine sediment by light microscopy NONE NRG Casts detection in urine sediment by light microscopy NONE NRG Mucus detection in urine sediment by light microscopy NEGATIVE NRG Complete urinalysis with reflex to culture YES NRG Bacterial urine culture - 08/30/18 21:03 Bacterial urine culture SEE COMMEN NRG COLONY COUNT . NRG Complete blood count (CBC) with automated white blood cell (WBC) differential - 08/30/18 21:56 Blood leukocytes automated count (number/volume) 7.8 10*3/uL 4.3-11.0 Blood erythrocytes automated count (number/volume) 4.69 10*6/uL 4.35-5.85 Venous blood hemoglobin measurement (mass/volume) 14.1 g/dL 11.5-16.0 Blood hematocrit (volume fraction) 42 % 35-52 Automated erythrocyte mean corpuscular volume 90 [foz_us] 80-99 Automated erythrocyte mean corpuscular hemoglobin (mass per erythrocyte) 30 pg 25-34 Automated erythrocyte mean corpuscular hemoglobin concentration measurement (mass/volume) 33 g/dL 32-36 Automated erythrocyte distribution width ratio 13.1 % 10.0- 14.5 Automated blood platelet count (count/volume) 216 10*3/uL 130-400 Automated blood platelet mean volume measurement 12.2 [foz_us] 7.4-10.4 Automated blood neutrophils/100 leukocytes 57 % 42-75 Automated blood lymphocytes/100 leukocytes 28 % 12-44 Blood monocytes/100 leukocytes 9 % 0-12 Automated blood eosinophils/100 leukocytes 5 % 0-10 Automated blood basophils/100 leukocytes 1 % 0-10 Blood neutrophils automated count (number/volume) 4.5 10*3 1.8-7.8 Blood lymphocytes automated count (number/volume) 2.2 10*3 1.0-4.0 Blood monocytes automated count (number/volume) 0.7 10*3 0.0- 1.0 Automated eosinophil count 0.4 10*3/uL 0.0-0.3 Automated blood basophil count (count/volume) 0.1 10*3/uL 0.0-0.1 Comprehensive metabolic panel - 08/30/18 21:56 Serum or plasma sodium measurement (moles/volume) 139 mmol/L 135-145 Serum or plasma potassium measurement (moles/volume) 4.4 mmol/L 3.6-5.0 Serum or plasma chloride measurement (moles/volume) 102 mmol/L 98-107 Carbon dioxide 25 mmol/L 21-32 Serum or plasma anion gap determination (moles/volume) 12 mmol/L 5-14 Serum or plasma urea nitrogen measurement (mass/volume) 23 mg/dL 7-18 Serum or plasma creatinine measurement (mass/volume) 0.93 mg/dL 0.60-1.30 Serum or plasma urea nitrogen/creatinine mass ratio 25 NRG Serum or plasma creatinine measurement with calculation of estimated glomerular filtration rate > NRG Serum or plasma glucose measurement (mass/volume) 93 mg/dL 70-105 Serum or plasma calcium measurement (mass/volume) 10.0 mg/dL 8.5-10.1 Serum or plasma total bilirubin measurement (mass/volume) 0.2 mg/dL 0.1-1.0 Serum or plasma alkaline phosphatase measurement (enzymatic activity/volume) 51 U/L 40-136 Serum or plasma aspartate aminotransferase measurement (enzymatic activity/volume) 18 U/L 5-34 Serum or plasma alanine aminotransferase measurement (enzymatic activity/volume) 17 U/L 0-55 Serum or plasma protein measurement (mass/volume) 7.0 g/dL 6.4-8.2 Serum or plasma albumin measurement (mass/volume) 4.5 g/dL 3.2-4.5 CALCIUM CORRECTED 9.6 mg/dL 8.5-10.1 UA W/ MICROSCOPY - 10/06/18 10:47 COLOR YELLOW YELLOW APPEARANCE CLEAR CLEAR SPECIFIC GRAVITY 1.009 1.001-1.035 PH 6.0 5.0-8.0 GLUCOSE NEGATIVE NEGATIVE BILIRUBIN NEGATIVE NEGATIVE KETONES NEGATIVE NEGATIVE OCCULT BLOOD NEGATIVE NEGATIVE PROTEIN NEGATIVE NEGATIVE NITRITE NEGATIVE NEGATIVE LEUKOCYTE ESTERASE NEGATIVE NEGATIVE WBC NONE SEEN /HPF < OR=5 RBC NONE SEEN /HPF < OR=2 SQUAMOUS EPITHELIAL CELLS NONE SEEN /HPF < OR=5 BACTERIA NONE SEEN /HPF NONE SEEN HYALINE CAST NONE SEEN /LPF NONE SEEN Encounters ACCT No. Visit Date/Time Discharge Status Pt. Type Provider Facility Loc./Unit Complaint [id number] 08/15/2014 12:07:00 08/15/2014 23:59:59 [facility] Outpatient DAMIAN VILLANUEVA DO [id number] 08/30/2018 21:20:00 08/31/2018 00:35:00 DIS Emergency IMAN KRAMER DO [facility] ER LRQ PAIN [id number] 07/27/2018 10:57:00 07/27/2018 16:00:00 DIS Outpatient TIMO DAVALOS DO [facility] SDC INCISIONAL HERNIA [id number] 07/26/2018 15:33:00 07/26/2018 16:08:00 DIS Outpatient TIMO DAVALOS DO [facility] PREOP INCISIONAL HERNIA [id number] 07/04/2018 08:02:00 07/04/2018 23:59:59 CLS Outpatient KE HUTSON APRN [facility] RAD UNCOMPLICATED EPIGASTRIC HERNIA [id number] 08/12/2014 17:31:00 08/12/2014 20:25:00 DIS Emergency IMAN KRAMER DO [facility] ER LEFT EYE RED/SWOLLEN [id number] 01/23/2019 08:10:00 01/23/2019 23:59:59 CLS Outpatient KE HUTSON [facility] [id number] 10/06/2018 10:20:00 Document Registration [id number] 12/02/2016 12:09:00 Document Registration
--- OUTSIDE RECORDS SUMMARY | 2019-05-15 08:10 | XMS REPORT ---
Author Author KE HUTSON Organization [employer] Address Unknown Phone Unavailable Care Team Providers Care [place] Driver Name Role Phone KE HUTSON CP Unavailable Allergies, Adverse Reactions, Alerts Substance [...] Date End Date Status Dosage Clindamycin HCl [facility] [address]-56 300 MG Orally every 8 hrs Sep 02, 2016 Sep 09, 2016 1 capsule Procedures Procedure Coding System Code Date Office Visit, Est Pt., Level 3 CPT-4 15689 Sep 02, 2016 Vital Signs Date/Time: Sep 02, 2016 Cardiac Monitoring Heart Rate 92 bpm Weight 168 lbs Height 64 in BMI 28.83 Index Blood Pressure Diastolic 70 mmHg Blood Pressure Systolic 100 mmHg Results No Known Results Summary Purpose eClinicalWorks Submission
--- OUTSIDE RECORDS SUMMARY | 2019-05-15 08:10 | XMS REPORT ---
Author Author KE HUTSON Organization [facility] Address [address] [place] [address] Care Team Providers Care Special Education Professor Name Role Phone KE HUTSON Unavailable PROBLEMS Type Condition ICD9-CM Code [id number] Code Onset Dates Condition Status SNOMED Code Problem Nocturia more than twice per night R35.1 Active 597996043 Problem Pilonidal cyst without abscess L05.91 Active 70602769 Problem Pilonidal cyst with abscess L05.01 Active 48703297 Problem Seasonal allergic rhinitis due to pollen J30.1 Active 31180301 Problem Anxiety F41.9 Active 62374840 Problem Changes in vision H53.9 Active 20079760 Problem Encounter for health maintenance examination in adult Z00.00 Active 353966202 Problem Weight loss R63.4 Active 455773021 Problem Primary insomnia F51.01 Active 7588245 ALLERGIES Substance Reaction Event Type Date Status N.K.D.A. Unknown Non Drug Allergy Oct, Unknown SOCIAL HISTORY No smoking Hx information available PLAN OF CARE Activity Details Follow Up 4 Weeks Reason:Lab follow VITAL SIGNS Height 64 in 2016-11-30 Weight 167.9 lbs 2016-11-30 Temperature 98.6 degrees Fahrenheit 2016-11-30 Heart Rate 96 bpm 2016-11-30 Respiratory Rate 18 2016-11-30 BMI 28.82 kg/m2 2016-11-30 Blood pressure systolic 110 mmHg 2016-11-30 Blood pressure diastolic 82 mmHg 2016-11-30 MEDICATIONS Medication Instructions Dosage Frequency Start Date End Date Duration Status Benadryl 25 MG Active Melatonin 10 MG Active RESULTS No Results PROCEDURES Procedure Date Ordered Related Diagnosis Body Site Office Visit, Est Pt., Level 3 Nov 30, 2016 IMMUNIZATIONS No Known Immunizations
--- NOTE | 2019-05-15 08:27 | ED Abdominal Pain ---
General Stated Complaint: LOWER ABD/BACK PAIN Source of Information: Patient Exam Limitations: No Limitations History of Present Illness Date Seen by Provider: May 15, 2019 Time Seen by Provider: 08:15 Initial Comments Patient presents ER become conveyance with chief complaint she woke up this morning 6:00 with a right lower quadrant abdominal pain as stabbing and sharp 13 out of 10. She took half of Percocet which made her pain go down to 4 out of 10 very tolerable. The pain is intermittent but never totally goes away. Is presently a 4 out of 10. She had a wave of nausea without vomiting. She does have a history of chronic constipation for which she uses laxatives. She had a bowel movement yesterday was normal. No dysuria discharge. The pain does not radiate anywhere. She claims it doubled her over and got her very concerned. She is denying any fever or cough chills but she did have sweats when the pain was coming on. She's had tubal ligation, umbilicus hernia repair with mesh and a hiatal hernia repair. No history of colonoscopy. Patient reveal she's been having dyspareunia without discharge. She's had STDs checked at her most recent Pap smear. She denies a history of STDs. Allergies and Home Medications Allergies Coded Allergies: No Known Drug Allergies (Unverified , 07/26/18) Home Medications Docusate Sodium 100 Mg Capsule, 100 MG PO BID Prescribed by: TIMO DAVALOS on 07/27/18 1307 Hydrocodone Bit/Acetaminophen 1 Tab Tab, 1-2 TAB PO Q6H PRN for PAIN-MODERATE Prescribed by: TIMO DAVALOS on 07/27/18 1307 Loratadine 10 Mg Tablet, 10 MG PO DAILY, (Reported) Naproxen 500 Mg Tablet, 500 MG PO BID Prescribed by: IMAN KRAMER on 08/31/18 0003 Ondansetron 4 Mg Tab.rapdis, 4 MG PO Q4H Prescribed by: IMAN KRAMER on 08/31/18 0003 Vit W-Ca,Fe,FA(<1 mg) 1 Each Tablet, 1 EACH PO DAILY, (Reported) Patient Home Medication List Home Medication List Reviewed: Yes Review of Systems Review of Systems Constitutional: No chills, No diaphoresis EENTM: No Blurred Vision, No Double Vision Respiratory: Denies Cough, Denies Shortness of Air Cardiovascular: Denies Chest Pain, Denies Edema Gastrointestinal: See HPI, Abdominal Pain; Denies Constipated (chronic), Denies Diarrhea; Nausea; Denies Vomiting Genitourinary: Denies Burning, Denies Discharge Musculoskeletal: No back pain, No joint pain Past Feyuvgp-Betjxv-Ppegiv Hx Patient Social History Alcohol Use: Denies Use Alcohol Beverage of Choice: Wine Recreational Drug Use: No Smoking Status: Former Smoker Type Used: Cigarettes Former Smoker, Quit: Apr 30, 2014 2nd Hand Smoke Exposure: No Recent Foreign Travel: No Contact w/Someone Who Travel: No Recent Hopitalizations: No Immunizations Up To Date Date of Influenza Vaccine: Jul 30, 2017 Seasonal Allergies Seasonal Allergies: Yes Past Medical History Surgeries: Yes Abdominal, Breast, Tubal Ligation Respiratory: No Cardiac: No Neurological: No 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 Sexually Transmitted Disease: No HIV/AIDS: No Genitourinary: No Gastrointestinal: Yes (S/P HIATAL HERNIA REPAIR AND UMBILICAL HERNIA REPAIR) Abdominal Hernia, Gastroesophageal Reflux, Hiatal Hernia Musculoskeletal: No Endocrine: No HEENT: No Loss of Vision: Bilateral Hearing Impairment: Denies Cancer: No Psychosocial: No Anxiety Integumentary: No Blood Disorders: No Adverse Reaction/Blood Tranf: No (N/A) Physical Exam Vital Signs Vital Signs - First Documented 05/15/19 08:31 Temp 98.6 Pulse 82 Resp 18 B/P (MAP) 110/83 (92) Pulse Ox 99 O2 Delivery Room Air Capillary Refill : Height/Weight/BMI Height: 5'4.00" Weight: 155lbs. 0.0oz. [id number]; 26.6 BMI Method:Stated General Appearance: WD/WN, no apparent distress HEENT: PERRL/EOMI, normal ENT inspection, pharynx normal Neck: full range of motion, normal inspection Respiratory: lungs clear, normal breath sounds, no respiratory distress, no accessory muscle use Cardiovascular: normal peripheral pulses, regular rate, rhythm Gastrointestinal: normal bowel sounds, soft, no organomegaly; No rebound; tenderness (mild discomfort at McBurney's point without rebound tenderness, Rovsing sign, psoas signs or other mesenteric signs.) Genital/Rectal: normal genital exam (normal extremities without obvious discharge.) Extremities: non-tender, normal capillary refill Back: normal inspection, CVA tenderness (R); No CVA tenderness (L) Progress/Results/Core Measures Results/Orders Lab Results Laboratory Tests Test 05/15/19 08:22 05/15/19 08:25 Range/Units Urine Color YELLOW Urine Clarity CLEAR Urine pH 6 5-9 Urine Specific [place] 1.025 H 1.016-1.022 Urine Protein NEGATIVE NEGATIVE Urine Glucose (UA) NEGATIVE NEGATIVE Urine Ketones NEGATIVE NEGATIVE Urine Nitrite NEGATIVE NEGATIVE Urine Bilirubin NEGATIVE NEGATIVE Urine Urobilinogen NORMAL NORMAL MG/DL Urine Leukocyte Esterase 1+ H NEGATIVE Urine RBC (Auto) NEGATIVE NEGATIVE Urine RBC NONE /HPF Urine WBC RARE /HPF Urine Squamous Epithelial Cells 0-2 /HPF Urine Crystals NONE /LPF Urine Bacteria TRACE /HPF Urine Casts NONE /LPF Urine Mucus NEGATIVE /LPF Urine Culture Indicated NO White Blood Count 9.2 4.3-11.0 10^3/uL Red Blood Count 4.83 4.35-5.85 10^6/uL Hemoglobin 14.4 11.5-16.0 G/DL Hematocrit 44 35-52 % Mean Corpuscular Volume 90 80-99 FL Mean Corpuscular Hemoglobin 30 25-34 PG Mean Corpuscular Hemoglobin Concent 33 32-36 G/DL Red Cell Distribution Width 13.9 10.0-14.5 % Platelet Count 191 130-400 10^3/uL Mean Platelet Volume 11.4 H 7.4-10.4 FL Neutrophils (%) (Auto) 77 H 42-75 % Lymphocytes (%) (Auto) 12 12-44 % Monocytes (%) (Auto) 8 0-12 % Eosinophils (%) (Auto) 3 0-10 % Basophils (%) (Auto) 0 0-10 % Neutrophils # (Auto) 7.0 1.8-7.8 X 10^3 Lymphocytes # (Auto) 1.1 1.0-4.0 X 10^3 Monocytes # (Auto) 0.8 0.0-1.0 X 10^3 Eosinophils # (Auto) 0.3 0.0-0.3 10^3/uL Basophils # (Auto) 0.0 0.0-0.1 10^3/uL Sodium Level 140 135-145 MMOL/L Potassium Level 3.8 3.6-5.0 MMOL/L Chloride Level 105 98-107 MMOL/L Carbon Dioxide Level 27 21-32 MMOL/L Anion Gap 8 5-14 MMOL/L Blood Urea Nitrogen 18 7-18 MG/DL Creatinine 0.92 0.60-1.30 MG/DL Estimat Glomerular Filtration Rate > 60 BUN/Creatinine Ratio 20 Glucose Level 80 70-105 MG/DL Calcium Level 9.4 8.5-10.1 MG/DL Corrected Calcium 9.1 8.5-10.1 MG/DL Total Bilirubin 0.5 0.1-1.0 MG/DL Aspartate Amino Transf (AST/SGOT) 18 5-34 U/L Alanine Aminotransferase (ALT/SGPT) 18 0-55 U/L Alkaline Phosphatase 45 40-136 U/L C-Reactive Protein High Sensitivity 0.09 0.00-0.50 MG/DL Total Protein 6.7 6.4-8.2 GM/DL Albumin 4.4 3.2-4.5 GM/DL Micro Results Microbiology 05/15/19 Wet Prep - Final, Complete My Orders Orders - DARIN WASHBURN Ua Culture If Indicated (05/15/19 08:05) Urine Bedside (05/15/19 08:05) Cbc With Automated Diff (05/15/19 08:21) Comprehensive Metabolic Panel (05/15/19 08:21) Hs C Reactive Protein (05/15/19 08:21) Iv Heplock-Insert (Order) (05/15/19 08:21) Wet Prep (05/15/19 08:49) Us Non Ob Transvaginal [id number] (05/15/19 09:11) Ketorolac Injection (Toradol Injection) (05/15/19 10:30) Medications Given in ED Current Medications Medications Dose Ordered Sig/Linda Route Start Time Stop Time Status Last Admin Dose Admin Ketorolac Tromethamine 30 mg ONCE ONCE IVP 05/15/19 10:30 05/15/19 10:31 DC 05/15/19 10:24 30 MG Vital Signs/I&O 05/15/19 08:31 Temp 98.6 Pulse 82 Resp 18 B/P (MAP) 110/83 (92) Pulse Ox 99 O2 Delivery Room Air Progress Progress Note : Time: 08:26 Progress Note History of sudden onset sharp pain in her right lower quadrant abdomen was improved significantly with Percocet. She's not needing anything for pain or nausea at this time. She's had a tubal ligation but will obtain a bedside , urinalysis and lab for deciding how better to work this up. Possibilities include ovarian cyst versus less likely appendicitis/colitis versus much less likely spontaneous, pelvic inflammatory disease. A kidney stone is also a possibility given her right CVA tenderness to percussion. Patient has declined further STD testing. We will do a wet prep however. Previous CT from 2018 demonstrating that the patient did have ovarian cysts with interval resolution. An appendix at that time was identified in the right central pelvis. 0850: Plan transvaginal ultrasound Re: right pelvic pain with history of adnexal cyst. Diagnostic Imaging Diagonstic Imaging: Ultrasound Plain Films/CT/US/NM/MRI: pelvis (tv) Comments NAME: [facility]O [facility] REC#: [id number] PT STATUS: REG ER : 1980 PHYSICIAN: DARIN WASHBURN MD ADMIT DATE: 05/15/19/ER Draft Date of Exam:05/15/19 US NON OB TRANSVAGINAL [id number] PROCEDURE: US NONOB transvaginal. INDICATION: Right-sided pelvic pain TECHNIQUE: Multiple real time estrella scale sonographic images were obtained of the pelvis transvaginally. CORRELATION STUDY: None FINDINGS: UTERUS: 7.5 x 4.5 x 3.7 cm. The uterus appears unremarkable. ENDOMETRIUM: 8 mm. The endometrium appearing unremarkable. RIGHT OVARY: 4.2 x 2.0 x 2.4 cm Slight irregularity which may reflective of perhaps a partially collapsed cyst the right ovary 2.8 x 1.9 x 1.8 cm. Blood flow to the ovary is present. LEFT OVARY: 2.2 x 1.6 x 2.8 cm The left ovary has an unremarkable appearance. No concerning mass. Normal blood flow. Small amount of free pelvic fluid. IMPRESSION: 1. May be a partially collapsed right ovarian cyst along with pelvic fluid, within physiologic range. Dictated on workstation # [id number] Dict: 05/15/19 1031 Trans: 05/15/19 1034 DO [id number] Interpreted by: GAMAL WALDEN DO Electronically signed by: Reviewed: Reviewed by Me Departure Impression Primary Impression: Right ovarian cyst Disposition: 01 HOME, SELF-CARE Condition: Stable Departure-Patient Inst. Decision time for Depature: 10:40 Referrals: [facility] (PCP/Family) Primary Care Physician Patient Instructions: Ovarian Cysts Add. Discharge Instructions: Ovarian cyst has ruptured on the right side which may cause some pain for the next several days. Typically will resolve on their own. Naprosyn 1-2 tablets twice a day in addition to Tylenol 1000 mg every 8 hours. Heating pads and rest can also be helpful. Zofran 1 tablet every 6 hours as needed for nausea. Scripts Ondansetron (Ondansetron Odt) 4 Mg Tab.rapdis 4 MG PO Q6H PRN for NAUSEA/VOMITING, #8 TAB 0 Refills Prov: DARIN WASHBURN 05/15/19 Work/School Note: Work Release Form Date Seen in the Emergency Department: May 15, 2019 Return to Work: May 16, 2019 Restrictions: No Restrictions DARIN WASHBURN May 15, 2019 08:27
[2019-05-15 08:32] LABS: BILIRUBIN,URINE NEGATIVE (NEGATIVE); CLARITY,URINE CLEAR; COLOR,URINE YELLOW; GLUCOSE, URINE (UA) NEGATIVE (NEGATIVE); KETONES,URINE NEGATIVE (NEGATIVE); LEUKOCYTE ESTERASE ,URINE 1+ (NEGATIVE); NITRITE,URINE NEGATIVE (NEGATIVE); PH,URINE 6 (5-9); PROTEIN,URINE NEGATIVE (NEGATIVE); UROBILINOGEN,URINE NORMAL (NORMAL)
[2019-05-15 08:34] LABS: BASOPHILS % (AUTO) 0 % (0-10); EOSINOPHILS # (AUTO) 0.3 10^3/uL (0.0-0.3); EOSINOPHILS % (AUTO) 3 % (0-10); HEMATOCRIT 44 % (35-52); HEMOGLOBIN 14.4 G/DL (11.5-16.0); LYMPHOCYTES # (AUTO) 1.1 X 10^3 (1.0-4.0); LYMPHOCYTES % (AUTO) 12 % (12-44); MEAN CORPUSCULAR HEMOGLOBIN 30 PG (25-34); MEAN CORPUSCULAR HGB CONC 33 G/DL (32-36); MEAN CORPUSCULAR VOLUME 90 FL (80-99); MEAN PLATELET VOLUME 11.4 FL (7.4-10.4); MONOCYTES # (AUTO) 0.8 X 10^3 (0.0-1.0); MONOCYTES % (AUTO) 8 % (0-12); NEUTROPHILS % (AUTO) 77 % (42-75); PLATELET COUNT 191 10^3/uL (130-400); RED CELL DISTRIBUTION WIDTH 13.9 % (10.0-14.5); WHITE BLOOD COUNT 9.2 10^3/uL (4.3-11.0)
[2019-05-15 08:42] LABS: BACTERIA,URINE TRACE /HPF; SQUAMOUS EPITHELIAL CELL,UR 0-2 /HPF; WBC,URINE RARE /HPF
[2019-05-15 09:02] LABS: ALANINE AMINOTRANSFERASE 18 U/L (0-55); ALBUMIN 4.4 GM/DL (3.2-4.5); ALKALINE PHOSPHATASE 45 U/L (40-136); BILIRUBIN,TOTAL 0.5 MG/DL (0.1-1.0); BUN/CREATININE RATIO 20; CALCIUM 9.4 MG/DL (8.5-10.1); CARBON DIOXIDE 27 MMOL/L (21-32); CHLORIDE 105 MMOL/L (98-107); CREATININE SERUM 0.92 MG/DL (0.60-1.30); GFR ESTIMATED > 60; GLUCOSE 80 MG/DL (70-105); POTASSIUM 3.8 MMOL/L (3.6-5.0); SODIUM 140 MMOL/L (135-145); TOTAL PROTEIN 6.7 GM/DL (6.4-8.2)
[2019-05-15] MEDS ORDERED: KETOROLAC 30 MG/ML VIAL IVP ONE (10:30)
--- NOTE | 2019-05-15 10:34 | Diagnostic Imaging Report ---
PROCEDURE: US NONOB transvaginal. INDICATION: Right-sided pelvic pain TECHNIQUE: Multiple real time estrella scale sonographic images were obtained of the pelvis transvaginally. CORRELATION STUDY: None FINDINGS: UTERUS: 7.5 x 4.5 x 3.7 cm. The uterus appears unremarkable. ENDOMETRIUM: 8 mm. The endometrium appearing unremarkable. RIGHT OVARY: 4.2 x 2.0 x 2.4 cm Slight irregularity which may reflective of perhaps a partially collapsed cyst the right ovary 2.8 x 1.9 x 1.8 cm. Blood flow to the ovary is present. LEFT OVARY: 2.2 x 1.6 x 2.8 cm The left ovary has an unremarkable appearance. No concerning mass. Normal blood flow. Small amount of free pelvic fluid. IMPRESSION: 1. May be a partially collapsed right ovarian cyst along with pelvic fluid, within physiologic range. Dictated by: Dictated on workstation # [id number]
[2019-05-15] MEDS ORDERED: ONDA4TAB11 PO (10:47)
[2019-05-15] MEDS ORDERED: TRAM50TA2 PO (10:53)
[2019-05-15 11:12] VITALS: BP 114/47
== END 2019-05-15 11:12 | disposition home or self-care (01) ==
LOC: EDUNIT# 08:02 → ER 08:03
DX: N83.201 Unspecified ovarian cyst, right side (principal); K21.9 Gastro-esophageal reflux disease without esophagitis; F41.9 Anxiety disorder, unspecified; Z87.19 Personal history of other diseases of the digestive system; Z98.51 Tubal ligation status; Z98.890 Other specified postprocedural states; Z87.891 Personal history of nicotine dependence
CPT/HCPCS: 36415; 76830; 80053; 81000; 84703; 85025; 86141; 87210; 96374

== ENCOUNTER 2020-09-15 05:33 | Outpatient (RCR) | payer MEDICAID ==
[~2020-09-15] VITALS: Ht 162.6 cm; Wt 71.8 kg
[~2020-09-15 05:33] MED LIST changes: +LEVO5TAB28 PO; +ONDA4TAB11 PO; +PANT40TA52 PO; +TRM50T PO
== END 2020-09-15 09:25 | disposition home or self-care (01) ==
LOC: PREOP 05:33
PROVIDERS: ATTEND Surgery
DX: Z01.812 Encounter for preprocedural laboratory examination (principal); K43.2 Incisional hernia without obstruction or gangrene; Z20.828 Contact with and (suspected) exposure to other viral communicable diseases
CPT/HCPCS: 87635

== ENCOUNTER 2020-09-18 07:45 | Day surgery (SDC) | payer MEDICAID ==
[2020-09-18] VITALS (12 sets, daily range): BP systolic 95–111; BP diastolic 44–65
[~2020-09-18] VITALS: Ht 162.6 cm; Wt 71.8 kg
--- NOTE | 2020-09-18 07:57 | Progress Note-Pre Operative ---
Pre-Operative Progress Note H&P Reviewed The H&P was reviewed, patient examined and no changes noted. Date Seen by Provider: Sep 18, 2020 Time Seen by Provider: 07:57 Date H&P Reviewed: Sep 18, 2020 Time H&P Reviewed: 07:57 Pre-Operative Diagnosis: incisional hernia TIMO Mcfarlane DO Sep 18, 2020 07:57
[2020-09-18] MEDS ORDERED: ceFAZolin INJECTION 1,000 MG in WATER (STERILE) FOR INJECTION 10 ML IV ONE (08:00)
[2020-09-18] MEDS ORDERED: ROCURONIUM 10 MG/ML 5 ML SYRINGE IV ONE (08:06)
[2020-09-18] MEDS ORDERED: SEVOFLURANE (ULTANE) 15 ML INHAL SOLN ONE ×3 (08:06→09:57)
[2020-09-18] MEDS ORDERED: LIDOCAINE PF 2% 5 ML (XYLOCAINE) VIAL ONE (08:06)
[2020-09-18] MEDS ORDERED: NEOSTIGMINE 3 MG/3 ML VIAL ONE (08:06)
[2020-09-18] MEDS ORDERED: GLYCOPYRROLATE 0.2 MG/ML (ROBINUL) 2 ML VIAL ONE (08:06)
[2020-09-18] MEDS ORDERED: ONDANSETRON 4 MG/2 ML (SDV) Z0FRAN ONE (08:06)
[2020-09-18] MEDS ORDERED: proPOfol 200 MG/20 ML (DIPRIVAN) VIAL IV ONE (08:06)
[2020-09-18] MEDS ORDERED: MIDAZOLAM 2 MG/2 ML (VERSED) VIAL ONE ×2 (08:07→08:22)
[2020-09-18] MEDS ORDERED: fentaNYL INJECTION 100 MCG/2 ML AMP ONE (08:07)
[2020-09-18] MEDS: LACTATED RINGERS 1,000 ML IV PRN ×2 (08:13→09:55)
[2020-09-18] MEDS ORDERED: MIDAZOLAM 2 MG/2 ML (VERSED) VIAL IVP ONE (08:30)
[2020-09-18] MEDS ORDERED: FAMOTIDINE 20MG/2ML IV (PEPCID) IVP ONE (08:30)
[2020-09-18] MEDS ORDERED: LIDOCAINE/EPI 1%-1:100,000 (XYLOCAINE) 20ML ONE (08:37)
[2020-09-18] MEDS ORDERED: FLUC150T PO (10:03)
[2020-09-18] MEDS ORDERED: HYDR-4226 PO (10:03)
--- NOTE | 2020-09-18 10:04 | Discharge Inst-Simple/Standard ---
Discharge Inst-Standard Discharge Medications New, Converted or Re-Newed RX: RX on Chart Patient Instructions/Follow Up Plan of Care/Instructions/FU: 3 weeks Teto Activity as Tolerated: No Discharge Diet: Regular Diet Other Inst to Patient Follow up Appt: Make appointment for 3 week. Instructions: No lifting greater than 10 pounds. No strenuous activity. May shower in 24 hours, no tub bath or soaking. Use incentive spirometer at home as directed. No Smoking Skin/Wound Care: You have special glue over your incision that will fall off on it's own. Symptoms to Report: Appetite Changes, Extremity Discoloration, Numbness/Tingling, Swelling Increased, Bleeding Excessive, Eyesight Changes, Pain Increased, Urine Color Change, Constipation(Persistent), Fever over 101 degree F, Pain/Pressure in chest, Urinating Difficulty, Cough Up/Vomit Blood, Heart Beat Irreg/Pounding, Pain/Pressure in jaw, Vaginal Bleeding Increase, Cramps in feet or legs, Lightheadedness, Pain/Pressure in shoulder, Diarrhea(Persistent), Memory Changes Suddenly, Questions/Concerns, Weight gain consecutive days, Dizziness/Fainting, Nausea/Vomiting, Shortness of Breath, Weight gain over 2 pounds If questions or concerns contact your physician Or seek help at emergency department. TIMO DAVALOS DO Sep 18, 2020 10:04
[2020-09-18] MEDS ORDERED: HYDROmorphone 2 MG/ML VIAL (DILAUDID) IV ONE (10:15)
[2020-09-18] MEDS ORDERED: ONDANSETRON 4 MG/2 ML (SDV) Z0FRAN IVP PRN (10:15)
[2020-09-18] MEDS ORDERED: HYDROcodone/APAP 5 MG/325 MG (LORTAB) TAB ONE (11:52)
[2020-09-18] MEDS ORDERED: HYDROcodone/APAP 5 MG/325 MG (LORTAB) TAB PO ONE (12:00)
--- NOTE | 2020-09-19 05:21 | OPERATIVE REPORT ---
DATE OF SERVICE: 09/18/2020 PREOPERATIVE DIAGNOSIS: Incisional hernia. POSTOPERATIVE DIAGNOSIS: Incisional hernia. PROCEDURE: Open incisional hernia repair, primary repair. SURGEON: Timo Irene DO UTILITIES GROUND WORKER: Dr. Ulrich, assisted in retraction, dissection and closure. ANESTHESIA: General. ESTIMATED BLOOD LOSS: Minimal. COMPLICATIONS: None. INDICATIONS: The patient is a 40-year-old female with a small incisional hernia in the left upper quadrant. This causes her pain and discomfort. She was discussed surgical options and she wishes to proceed with open incisional hernia repair with primary repair. Consent was signed in the chart. DESCRIPTION OF PROCEDURE: The patient was taken to the operating suite. She was prepped and draped in sterile fashion. Surgical pause was performed. Local anesthetic was infiltrated around the area. A 15 blade scalpel was used to make a small skin incision. Cautery was used to dissect down through the subcutaneous tissues until fascia was encountered. A small defect was present. This was then mobilized off the fascia and no other abnormalities were visualized within the area. An 0 Vicryl was then used to close the defect in a inyipo-ci-zzynj fashion. Local anesthetic was infiltrated around the area and the wound was then closed in the usual fashion. The skin was washed and dried and Skin Affix was placed over the incision. The patient tolerated procedure well without any complications. She was taken to recovery room in stable condition. Job ID: [id number] DocumentID: [id number] Dictated Date: 09/18/2020 23:13:54 Log Clerk Date: 09/19/2020 05:20:33 Dictated By: TIMO IRENE DO
--- NOTE | 2020-09-19 16:00 | Anesthesia-General Post-Op ---
General Patient Condition Mental Status/LOC: Same as Preop Cardiovascular: Satisfactory Nausea/Vomiting: Absent Respiratory: Satisfactory Pain: Controlled Complications: Absent Post Op Complications Complications None Follow Up Care/Instructions Patient Instructions None needed. Anesthesia/Patient Condition Patient Condition Patient is doing well, no complaints, stable vital signs, no apparent adverse anesthesia problems. No complications reported per nursing. [place] [facility] [place]: Yes PRESTON MORALES CRNA Sep 19, 2020 16:00
== END 2020-09-18 12:20 | disposition home or self-care (01) ==
LOC: SDC 07:45
PROVIDERS: ATTEND Surgery
DX: K43.2 Incisional hernia without obstruction or gangrene (principal); F41.9 Anxiety disorder, unspecified; K21.9 Gastro-esophageal reflux disease without esophagitis; Z79.899 Other long term (current) drug therapy; Z87.891 Personal history of nicotine dependence; Z80.1 Family history of malignant neoplasm of trachea, bronchus and lung
CPT/HCPCS: 84703; 87081

== ENCOUNTER 2022-02-18 05:42 | Outpatient (CLI) | payer MEDICAID ==
[~2022-02-18] VITALS: Ht 162.6 cm; Wt 77.1 kg
[~2022-02-18 05:42] MED LIST changes: +FLUC150T PO; +HYDR-4226 PO
== END 2022-02-18 10:42 | disposition home or self-care (01) ==
LOC: PREOP 05:42
PROVIDERS: ATTEND Surgery
DX: Z01.818 Encounter for other preprocedural examination (principal)

== ENCOUNTER → 2022-02-23 | Outpatient (CLI) | payer MEDICAID ==
--- NOTE | 2022-02-23 09:35 | Diagnostic Imaging Report ---
EXAMINATION: US Abdomen limited. TECHNIQUE: Multiple Real-time grayscale images were obtained over the right upper quadrant in various projections. REASON FOR EXAM: Epigastric pain. COMPARISON: 08/30/2018. FINDINGS: The liver is normal in size and shape. The liver echogenicity is within normal limits. There are no focal lesions. No intrahepatic biliary dilatation is present. The common bile duct is not dilated and measures 4 mm. The main portal vein is hepatopedal. No ascites is seen in the upper abdomen. There is no evidence of cholelithiasis, gallbladder wall thickening, or pericholecystic fluid. Sonographic Gomez's sign is negative. The visualized portion of the head of the pancreas are within normal limits. The body and tail of the pancreas are not well visualized due to overlying bowel gas. The visualized portions of the IVC and aorta appear normal. The right kidney measures approximately 10.0 cm in length and has a normal appearance. IMPRESSION: No cholelithiasis or acute cholecystitis. No liver or gallbladder abnormality detected. Dictated by: Dictated on workstation # [id number]
== END ==
LOC: RAD 08:30
PROVIDERS: ATTEND Surgery
DX: R10.13 Epigastric pain (principal)
CPT/HCPCS: 76705

== ENCOUNTER 2022-02-26 12:27 | Day surgery (SDC) | payer MEDICAID ==
[~2022-02-26] VITALS: Ht 162.6 cm; Wt 77.1 kg
[2022-02-26] MEDS ORDERED: LACTATED RINGERS 1,000 ML IV STA (12:32)
[2022-02-26 12:45] VITALS: BP 115/72
[2022-02-26] MEDS ORDERED: HURRICAINE EXT TUBE (BENZOCAINE) XX PRN (12:45)
--- NOTE | 2022-02-26 12:52 | Progress Note-Pre Operative ---
Pre-Operative Progress Note H&P Reviewed The H&P was reviewed, patient examined and no changes noted. Date Seen by Provider: Feb 26, 2022 Time Seen by Provider: 12:52 Date H&P Reviewed: Feb 26, 2022 Time H&P Reviewed: 12:52 Pre-Operative Diagnosis: gerd, epigastric pain TIMO DAVALOS DO Feb 26, 2022 12:52
[2022-02-26] MEDS ORDERED: proPOfol 200 MG/20 ML (DIPRIVAN) VIAL IV ONE (12:55)
[2022-02-26] MEDS ORDERED: MIDAZOLAM 2 MG/2 ML (VERSED) VIAL ONE (12:55)
[2022-02-26 13:15] VITALS: BP 111/63
[2022-02-26 13:20] VITALS: BP 113/65
--- NOTE | 2022-02-26 13:21 | Discharge Inst-Simple/Standard ---
Discharge Inst-Standard Patient Instructions/Follow Up Plan of Care/Instructions/FU: 2 weeks Teto IBRAHIM scan before appointment. If not scheduled call office to have scheduled before appointment. Activity as Tolerated: Yes Discharge Diet: Regular Diet (avoid dairy/fatty foods.) TIMO DAVALOS DO Feb 26, 2022 13:21
--- NOTE | 2022-02-26 13:22 | Progress Note-Post Operative ---
Post-Operative Progess Note Surgeon (s)/Aemt (s) Surgeon TIMO DAVALOS DO Aemt: na Pre-Operative Diagnosis gerd, epigastric pain Post-Operative Diagnosis gastric polyps Procedure & Operative Findings Date of Procedure 02/26/22 Procedure Performed/Findings egd c biopsies Anesthesia Type per [facility] Estimated Blood Loss Estimated blood loss (mL): none Specimens/Packing Specimens Removed antrum, ge TIMO DAVALOS DO Feb 26, 2022 13:22
[2022-02-26 13:51] VITALS: BP 112/62
[2022-02-26 13:53] VITALS: BP 112/62
--- NOTE | 2022-02-26 14:49 | Anesthesia-General Post-Op ---
MAC Patient Condition Mental Status/LOC: Same as Preop Cardiovascular: Satisfactory Nausea/Vomiting: Absent Respiratory: Satisfactory Pain: Controlled Complications: Absent Post Op Complications Complications None Follow Up Care/Instructions Patient Instructions None needed. Anesthesiology Discharge Order Discharge Order Patient was doing well after the procedure with no complaints, stable vital signs, no apparent adverse anesthesia problems. LUCRECIA HURD DO Feb 26, 2022 14:49
--- NOTE | 2022-02-26 18:04 | OPERATIVE REPORT ---
DATE OF SERVICE: 02/26/2022 PREOPERATIVE DIAGNOSES: Gastroesophageal reflux disease and epigastric abdominal pain. POSTOPERATIVE DIAGNOSIS: Gastric polyps. PROCEDURES PERFORMED: EGD with biopsies. SURGEON: Timo Irene DO. ANESTHESIA: Per MDA. ESTIMATED BLOOD LOSS: None. COMPLICATIONS: None. INDICATIONS FOR PROCEDURE: The patient is a 42-year-old female with GERD and epigastric abdominal pain. She is on Protonix. She understands the risks and benefits of the procedure and wishes to proceed. Consent was signed in the chart. DESCRIPTION OF PROCEDURE: The patient was taken to the endoscopy suite and placed in a left lateral recumbent position. A timeout was performed. Scope was inserted in mouth, down the esophagus, stomach and into the duodenum without difficulty. There were no polyps, masses or ulcerations within the duodenum. Scope was slowly retracted back. No benign appearing polyps in the stomach. No erythematous changes. No masses or ulcerations. Scope was retroflexed noting evidence of previous hiatal hernia repair. No other pathology noted. Scope was returned to its normal position. Biopsy of the antrum was obtained. Scope was then slowly retracted back to the distal esophagus, no significant abnormalities. Biopsy of GE junction was obtained. Scope was slowly retracted back until completely removed. The patient tolerated the procedure well without any complications. She was taken to recovery room in a stable condition. RECOMMENDATIONS: The patient has already had an ultrasound, which was normal. We will get a HIDA scan. Continue on current medications. She will follow up in the office after a HIDA scan and we will go over biopsy results as well at that time. Job ID: [id number] DocumentID: [id number] Dictated Date: 02/26/2022 13:23:53 Breeding Manager Date: 02/26/2022 18:04:33 Dictated By: TIMO IRENE DO
--- NOTE | 2022-03-04 16:06 | Physician Query Clarification ---
PQ-Conflicting Diagnosis Admission/Discharge Admission Date: 02/26/22 Discharge Date: 02/26/22 The medical record reflects the following clinical scenario: Question: Can you clarify the diagnosis on the OP report. Postop dx states gastric polyp, body of report states no polyps in stomach or duodenum. 1. Gastric polyp 2. No gastric polyp 3. Other, please document PHYSICIAN RESPONSE Do you agree w/Consulting Dx?: Yes Please remember a lack of response to the above will prompt a phone page by CDI/Coding staff. In responding to this query, please exercise your independent professional judgment. The purpose of this communication is to more accurately reflect the complexity of your patients condition. The fact that a question is asked does not imply that any particular answer is desired or expected. Thank you for your timely response to this clarification. Requestors name: [ ] Phone # [ ] THIS PHYSICIAN QUERY FORM IS A PERMANENT PART OF THE MEDICAL RECORD MATTHEW FORD March 04, 2022 16:06 TIMO DAVALOS DO March 05, 2022 08:26
== END 2022-02-26 13:56 | disposition home or self-care (01) ==
LOC: ENDO 12:27
PROVIDERS: ATTEND Surgery
DX: K31.7 Polyp of stomach and duodenum (principal); K21.00 Gastro-esophageal reflux disease with esophagitis, without bleeding; Z79.899 Other long term (current) drug therapy; Z28.310 Unvaccinated for COVID-19; Z28.20 Immunization not carried out because of patient decision for unspecified reason
CPT/HCPCS: 84703; 88305

== ENCOUNTER → 2022-03-04 | Outpatient (CLI) | payer MEDICAID ==
[~2022-03-04] MED LIST changes: +CATHETER FLUSH 10 ML SYR IVP PRN
--- NOTE | 2022-03-04 14:37 | Diagnostic Imaging Report ---
INDICATION: Epigastric pain. EXAMINATION: HIDA scan, 03/04/2022. FINDINGS: After uneventful administration of 5.48 mCi of technetium-99m Choletec intravenously, subsequent imaging is performed with prompt homogeneous uptake seen throughout the liver. Gallbladder and small bowel loops are seen within less than 30 minutes. At 50 minutes, 8 ounces of Ensure administered orally with continued imaging performed. Ejection fraction is calculated at 69.6%. IMPRESSION: 1. No obstructive process. 2. Normal ejection fraction. Dictated by: Dictated on workstation # [id number]
== END ==
LOC: CARD 12:00
PROVIDERS: ATTEND Surgery
DX: R10.13 Epigastric pain (principal)
CPT/HCPCS: 78227; A9537

== ENCOUNTER 2022-12-07 05:30 | Outpatient (CLI) | payer MEDICAID ==
[~2022-12-07] VITALS: Ht 162.6 cm; Wt 77.1 kg
[~2022-12-07 05:30] MED LIST changes: -CATHETER FLUSH 10 ML SYR IVP PRN
[2022-12-07] MEDS ORDERED: DICY10CA12 PO (09:29)
[2022-12-07] MEDS ORDERED: SUCR1TAB PO (09:29)
== END 2022-12-07 09:40 | disposition home or self-care (01) ==
LOC: PREOP 05:30
PROVIDERS: ATTEND Surgery
DX: Z01.818 Encounter for other preprocedural examination (principal)

== ENCOUNTER 2022-12-09 09:45 | Day surgery (SDC) | payer MEDICAID ==
[2022-12-09] VITALS (12 sets, daily range): BP systolic 83–122; BP diastolic 41–85
[~2022-12-09] VITALS: Ht 162.6 cm; Wt 77.1 kg
[~2022-12-09 09:45] MED LIST changes: +DICY10CA12 PO; +SUCR1TAB PO
[2022-12-09] MEDS ORDERED: LIDOCAINE/EPI 1%-1:100,000 (XYLOCAINE) 30ML ONE (09:52)
[2022-12-09] MEDS ORDERED: ceFAZolin INJECTION 2,000 MG in NS (IVPB) 50 ML IV ONE (10:15)
--- NOTE | 2022-12-09 10:15 | Progress Note-Pre Operative ---
Pre-Operative Progress Note Date of Available H&P: Dec 06, 2022 Date H&P Reviewed: Dec 09, 2022 Time H&P Reviewed: 10:14 History & Physical: H&P Reviewed, Patient Examed, No changes noted Pre-Operative Diagnosis: pilonidal cyst TIMO DAVALOS DO Dec 09, 2022 10:15
[2022-12-09] MEDS ORDERED: LIDOCAINE PF 2% 5 ML (XYLOCAINE) VIAL ONE (10:17)
[2022-12-09] MEDS ORDERED: proPOfol 200 MG/20 ML (DIPRIVAN) VIAL IV ONE (10:17)
[2022-12-09] MEDS ORDERED: SEVOFLURANE (ULTANE) 15 ML INHAL SOLN ONE ×2 (10:17→11:32)
[2022-12-09] MEDS ORDERED: fentaNYL INJ 100 MCG/2 ML AMP ONE ×3 (10:17→12:25)
[2022-12-09] MEDS ORDERED: ONDANSETRON 4 MG/2 ML (SDV) Z0FRAN ONE (10:17)
[2022-12-09] MEDS ORDERED: MIDAZOLAM 2 MG/2 ML (VERSED) VIAL ONE (10:17)
[2022-12-09] MEDS: LACTATED RINGERS 1,000 ML IV PRN ×2 (10:18→11:59)
[2022-12-09] MEDS ORDERED: ROCURONIUM 50 MG/5 ML (ZEMURON) VIAL IV ONE (11:32)
[2022-12-09] MEDS ORDERED: ACHD5005 PO (11:49)
[2022-12-09] MEDS ORDERED: FLUC200T PO (11:49)
--- NOTE | 2022-12-09 11:51 | Discharge Inst-Simple/Standard ---
Discharge Inst-Standard Discharge Medications New, Converted or Re-Newed RX: Transmitted to Pharmacy Patient Instructions/Follow Up Plan of Care/Instructions/FU: 12-14 days (Sutures) Teto Activity as Tolerated: No Discharge Diet: Regular Diet Other Inst to Patient Follow up Appt: Make appointment for 12-14 days Teto (sutures) Instructions: No lifting greater than 10 pounds. No strenuous activity. May shower in 24 hours, no tub bath or soaking. Use incentive spirometer at home as directed. No Smoking Skin/Wound Care: Keep area clean and dry. Symptoms to Report: Appetite Changes, Extremity Discoloration, Numbness/Tingling, Swelling Increased, Bleeding Excessive, Eyesight Changes, Pain Increased, Urine Color Change, Constipation(Persistent), Fever over 101 degree F, Pain/Pressure in c hest, Urinating Difficulty, Cough Up/Vomit Blood, Heart Beat Irreg/Pounding, Pain/Pressure in jaw, Vaginal Bleeding Increase, Cramps in feet or legs, Lightheadedness, Pain/Pressure in shoulder, Diarrhea(Persistent), Memory Changes Suddenly, Questions/Concerns, Weight gain consecutive days, Dizziness/Fainting, Nausea/Vomiting, Shortness of Breath, Weight gain over 2 pounds If questions or concerns contact your physician Or seek help at emergency department. TIMO DAVALOS DO Dec 09, 2022 11:51
--- NOTE | 2022-12-09 11:51 | Anesthesia-General Post-Op ---
General Patient Condition Mental Status/LOC: Same as Preop Cardiovascular: Satisfactory Nausea/Vomiting: Absent Respiratory: Satisfactory Pain: Controlled Complications: Absent Post Op Complications Complications None Follow Up Care/Instructions Patient Instructions None needed. Anesthesia/Patient Condition Patient Condition Patient is doing well, no complaints, stable vital signs, no apparent adverse anesthesia problems. No complications reported per nursing. YANA SARABIA CRNA Dec 09, 2022 11:51
--- NOTE | 2022-12-09 11:52 | Progress Note-Post Operative ---
Post-Operative Progess Note Surgeon (s)/Door Attendant (s) Surgeon TIMO DAVALOS DO Door Attendant: na Pre-Operative Diagnosis pilonidal cyst Post-Operative Diagnosis same Procedure & Operative Findings Date of Procedure 12/09/22 Procedure Performed/Findings excision pilonidal cyst Anesthesia Type gen Estimated Blood Loss Estimated blood loss (mL): min Specimens/Packing Specimens Removed pilonidal cyst TIMO DAVALOS DO Dec 09, 2022 11:52
[2022-12-09] MEDS ORDERED: MEPERIDINE (DEMEROL) INJ 50 MG/ML ONE (11:56)
[2022-12-09] MEDS ORDERED: MEPERIDINE (DEMEROL) INJ 50 MG/ML IVP ONE (12:00)
[2022-12-09] MEDS ORDERED: fentaNYL INJ 100 MCG/2 ML AMP IVP ONE (12:00)
[2022-12-09] MEDS ORDERED: ONDANSETRON 4 MG/2 ML (SDV) Z0FRAN IVP PRN (12:00)
[2022-12-09] MEDS ORDERED: HYDROcodone/APAP 5 MG/325 MG (LORTAB) TAB PO ONE (13:15)
--- NOTE | 2022-12-09 22:01 | OPERATIVE REPORT ---
DATE OF SERVICE: 12/09/2022 PREOPERATIVE DIAGNOSIS: Pilonidal cyst. POSTOPERATIVE DIAGNOSIS: Pilonidal cyst. PROCEDURE: Excision of pilonidal cyst, 2.5 x 7 cm. SURGEON: Timo Irene DO TYPE OF ANESTHESIA: General. ESTIMATED BLOOD LOSS: Minimal. COMPLICATIONS: None. INDICATIONS: The patient is a 42-year-old female with pilonidal cyst. She understands risks and benefits of the procedure and wished to proceed. Consent was signed and on chart. DESCRIPTION OF PROCEDURE: The patient was taken to the operating suite, placed in recumbent position. She was prepped and draped in sterile fashion. Timeout was performed. A #15 blade scalpel was used to excise around the pilonidal tract cyst. Cautery was used to dissect down through the subcutaneous tissues and fascia all the way down to the sacrum. Once this was removed, the wound was irrigated with copious amounts of irrigation and hemostasis was achieved. Local anesthetic was infiltrated around the wound. The skin and subcutaneous tissues were then closed with 0 Prolenes in a vertical mattress and simple interrupted fashion. The area was washed and dried and sterile bandages were applied. The patient tolerated the procedure well without complications, taken to recovery room in stable condition. Job ID: [id number] DocumentID: [id number] Dictated Date: 12/09/2022 17:19:26 Furnace Process Plant Operator Date: 12/09/2022 21:59:00 Dictated By: TIMO IRENE DO
== END 2022-12-09 14:02 | disposition home or self-care (01) ==
LOC: SDC 09:45
PROVIDERS: ATTEND Surgery
DX: L05.91 Pilonidal cyst without abscess (principal); Z28.310 Unvaccinated for COVID-19
CPT/HCPCS: 84703; 87081

== ENCOUNTER 2023-05-13 10:12 | Emergency (ER) | payer MEDICAID ==
[~2023-05-13] VITALS: Ht 162 cm; Wt 65.7 kg
[2023-05-13] MEDS ORDERED: KETOROLAC 15 MG/ML VIAL IM ONE (10:30)
[2023-05-13] MEDS ORDERED: KETO10TA PO (10:31)
[2023-05-13] MEDS ORDERED: CYCL10TA25 PO (10:31)
--- NOTE | 2023-05-13 10:32 | ED Back Pain ---
General Chief Complaint: Back Problems Stated Complaint: LOWER BACK AND LT LEG PAIN Nursing Triage Note: PT AMBULATORY TO ER. PT C/O L LOWER BACK PAIN, RADIATES DOWN L LEG, DENIES LOSS OF BOWEL OR BLADDER. PT SAW HER CHIROPRACTOR ON TUESDAY, NO RELIEF. HAS BEEN TAKING OTC IBUPROFEN/TYENOL WITH NO RELIEF. Source of Information: Patient Exam Limitations: No Limitations History of Present Illness Date Seen by Provider: May 13, 2023 Time Seen by Provider: 10:19 Initial Comments 43-year-old female presents emergency department today for left buttock, lower extremity pain. She believes it may be related to sciatica and she had this happen several years ago as well. She denies any lower extremity weakness numbness or tingling. No saddle anesthesia or loss of bowel or bladder control. She saw her chiropractor on Tuesday but got no relief. All other systems reviewed and negative except documented per HPI. Voice recognition software was used to help create this chart Allergies and Home Medications Allergies Coded Allergies: No Known Drug Allergies (Unverified , 12/07/22) Patient Home Medication List Home Medication List Reviewed: Yes Dicyclomine HCl (Dicyclomine HCl) 10 Mg Capsule, 10 MG PO UD, (Reported) Entered as Reported by: EMERALD CARDENAS on 12/07/22928 Fluconazole (Diflucan) 200 Mg Tablet, 200 MG PO DAILY PRN Prescribed by: TIMO DAVALOS on 12/09/22 1149 Hydrocodone/Acetaminophen (Hydrocodone-Acetamin 5-325 mg) 5 Mg-325 Mg Tablet, 1 EACH PO Q4H PRN for PAIN-MODERATE (5-7) Prescribed by: TIMO DAVALOS on 12/09/22 1150 Levocetirizine Dihydrochloride (Xyzal) 5 Mg Tablet, 5 MG PO HS, (Reported) Entered as Reported by: ANA YOUNGBLOOD on 09/12/20 1346 Pantoprazole Sodium (Pantoprazole Sodium) 40 Mg Tablet.dr, 40 MG PO DAILY, (Reported) Entered as Reported by: ANA YOUNGBLOOD on 09/12/20 1346 Sucralfate (Sucralfate) 1 Gram Tablet, 1 GM PO QID, (Reported) Entered as Reported by: EMERALD CARDENAS on 12/07/22 0929 Review of Systems Constitutional: see HPI Past Cpufuye-Luftwi-Cfnigj Hx Patient Social History Tobacco Use?: No Substance use?: No Alcohol Use?: Yes Alcohol Frequency: Several times a month Pt feels they are or have been: No Immunizations Up To Date First/Initial COVID19 Vaccinat: DENIES Seasonal Allergies Seasonal Allergies: Yes Past Medical History Surgeries: Yes (Hiatal Hernia, BREAST IMPLANTS, bmt bilateral, 2 hernia, tubal lig) Breast, Tubal Ligation Respiratory: No Currently Using CPAP: No Currently Using BIPAP: No Cardiac: No Neurological: No Last Menstrual Period: Apr 13, 2023 Reproductive Disorders: No Female Reproductive Disorders: Ovarian Cyst 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 OFFICER History: Tubal Ligation Sexually Transmitted Disease: No HIV/AIDS: No Genitourinary: No Gastrointestinal: Yes (S/P HIATAL HERNIA REPAIR AND UMBILICAL HERNIA REPAIR) Abdominal Hernia, Gastroesophageal Reflux, Hiatal Hernia Musculoskeletal: No Endocrine: No HEENT: No Loss of Vision: Bilateral Hearing Impairment: Denies Cancer: No Psychosocial: Yes Anxiety Integumentary: No Blood Disorders: No Adverse Reaction/Blood Tranf: No (N/A) Physical Exam Vital Signs Vital Signs - First Documented 05/13/23 10:20 Temp 36.7 Pulse 76 Resp 18 B/P (MAP) 127/68 (87) Pulse Ox 100 O2 Delivery Room Air Capillary Refill : Height, Weight, BMI Height: 5'4.00" Weight: 165lbs. 0.0oz. [id number]; 25.00 BMI Method:Stated General Appearance: No Apparent Distress, WD/WN Cardiovascular: Regular Rate, Rhythm, No Murmur, Normal Peripheral Pulses Respiratory: Chest Non Tender, Lungs Clear, Normal Breath Sounds, No Accessory Muscle Use, No Respiratory Distress Extremity: Normal Capillary Refill, Normal Inspection, Normal Range of Motion, Non Tender, No Calf Tenderness, Other (Tenderness palpation left buttock near the sciatic nerve region. No skin changes) Neurologic/Psychiatric: Oriented x3, No Motor/Sensory Deficits Skin: Normal Color, Warm/Dry Progress/Results/Core Measures Results/Orders My Orders Orders - MIKE CLIFFORD DO Ketorolac Injection (Toradol Injection) (05/13/23 10:30) Vital Signs/I&O 05/13/23 10:20 Temp 36.7 Pulse 76 Resp 18 B/P (MAP) 127/68 (87) Pulse Ox 100 O2 Delivery Room Air Blood Pressure Mean: 87 Departure Communication (Admissions) Patient is hemodynamically stable. Symptoms consistent with sciatica. She has no red flag symptoms to indicate herniated disc, epidural abscess, equina syndrome or other acute medical emergency. She will be given IM Toradol and discharged with p.o. Toradol, Flexeril. Impression Primary Impression: Sciatica Qualified Codes: M54.32 - Sciatica, left side Disposition: HOME, SELF-CARE Condition: Stable Departure-Patient Inst. [place]: [facility] [place] Primary Care Physician Patient Instructions: Sciatica Add. Discharge Instructions: Perform maneuvers to help with sciatic nerve as discussed in the emergency department. Use the Toradol as needed for pain. Use muscle relaxers as needed as well. These may make you drowsy so do not drive or make important decisions while taking them. Do not take any additional anti-inflammatory medicines while taking Toradol. Return to the emergency department for any severe concerns. All discharge instructions reviewed with patient and/or family. Voiced understanding. Scripts Cyclobenzaprine HCl (Cyclobenzaprine HCl) 10 Mg Tablet 10 MG PO TID for Muscle Spasms for 5 Days, #15 TAB Prov: MIKE CLIFFORD DO 05/13/23 Ketorolac Tromethamine (Ketorolac Tromethamine) 10 Mg Tablet 10 MG PO TID for Pain for 3 Days, #9 TAB Prov: MIKE CLIFFORD DO 05/13/23 MIKE CLIFFORD DO May 13, 2023 10:31
[2023-05-13 10:46] VITALS: BP 113/68
== END 2023-05-13 10:47 | disposition home or self-care (01) ==
LOC: EDUNIT# 10:12 → ER 10:15
DX: M54.40 Lumbago with sciatica, unspecified side (principal); Z28.310 Unvaccinated for COVID-19
CPT/HCPCS: 99284

== ENCOUNTER 2023-10-05 07:59 | Emergency (ER) | payer MEDICAID ==
[~2023-10-05] VITALS: Ht 157 cm; Wt 68.0 kg
[~2023-10-05 07:59] MED LIST changes: +CYCL10TA25 PO; +DICY-11 PO; -DICY10CA12 PO; +KETO10TA PO
[2023-10-05 08:03] VITALS: BP 126/60
--- NOTE | 2023-10-05 08:14 | ED Upper Extremity ---
General Stated Complaint: RT WRIST INJ | FALL 1 WEEK AGO Source: patient Exam Limitations: no limitations History of Present Illness Date Seen by Provider: Oct 05, 2023 Time Seen by Provider: 08:06 Initial Comments Here with complaint of right wrist pain after falling a week ago while trying to get her pigs back in the pen. She states that she fell onto the right wrist. She retains range of motion but has pain in the distal forearm proximal wrist area especially laterally specifically swollen or bruised. She wanted to make sure that it was okay because is not getting better with topical anti- inflammatory or ibuprofen. Denies other injury Onset: last week Severity: mild Pain/Injury Location: right wrist Method of Injury: fell Modifying Factors: Improves With Immobilization; Worse With Movement Allergies and Home Medications Allergies Coded Allergies: No Known Drug Allergies (Unverified , 12/07/22) Patient Home Medication List Home Medication List Reviewed: Yes Cyclobenzaprine HCl (Cyclobenzaprine HCl) 10 Mg Tablet, 10 MG PO TID Prescribed by: MIKE CLIFFORD MD on 05/13/23 1031 Dicyclomine HCl (Dicyclomine HCl) 10 Mg Capsule, 10 MG PO UD, (Reported) Entered as Reported by: EMERALD CARDENAS on 12/07/22 0929 Fluconazole (Diflucan) 200 Mg Tablet, 200 MG PO DAILY PRN Prescribed by: TIMO DAVALOS on 12/09/22 1149 Hydrocodone/Acetaminophen (Hydrocodone-Acetamin 5-325 mg) 5 Mg-325 Mg Tablet, 1 EACH PO Q4H PRN for PAIN-MODERATE (5-7) Prescribed by: TIMO DAVALOS on 12/09/22 1150 Ketorolac Tromethamine (Ketorolac Tromethamine) 10 Mg Tablet, 10 MG PO TID Prescribed by: MIKE CLIFFORD MD on 05/13/23 1031 Levocetirizine Dihydrochloride (Xyzal) 5 Mg Tablet, 5 MG PO HS, (Reported) Entered as Reported by: ANA YOUNGBLOOD on 09/12/20 1346 Pantoprazole Sodium (Pantoprazole Sodium) 40 Mg Tablet.dr, 40 MG PO DAILY, (Reported) Entered as Reported by: ANA YOUNGBLOOD on 09/12/20 1346 Sucralfate (Sucralfate) 1 Gram Tablet, 1 GM PO QID, (Reported) Entered as Reported by: EMERALD Joe RONALD on 12/07/22 0924 Review of Systems Constitutional: No weakness Respiratory: no symptoms reported Cardiovascular: no symptoms reported Musculoskeletal: joint pain, muscle pain Psychiatric/Neurological: Tingling (Fingers 3 through 5 occasionally mild) Past Bvijyur-Ivbccm-Tnzhqi Hx Patient Social History Tobacco Use?: No Use of E-Cig and/or Vaping dev: No Substance use?: No Alcohol Use?: No Immunizations Up To Date First/Initial COVID19 Vaccinat: DENIES Seasonal Allergies Seasonal Allergies: Yes Past Medical History Surgeries: Yes Breast, Tubal Ligation Respiratory: No Currently Using CPAP: No Currently Using BIPAP: No Cardiac: No Neurological: No Reproductive Disorders: No Female Reproductive Disorders: Ovarian 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 Sexually Transmitted Disease: No HIV/AIDS: No Genitourinary: No Gastrointestinal: Yes (S/P HIATAL HERNIA REPAIR AND UMBILICAL HERNIA REPAIR) Abdominal Hernia, Gastroesophageal Reflux, Hiatal Hernia Musculoskeletal: No Endocrine: No HEENT: No Loss of Vision: Bilateral Hearing Impairment: Denies Cancer: No Psychosocial: Yes Anxiety Integumentary: No Blood Disorders: No Adverse Reaction/Blood Tranf: No (N/A) Family Medical History Reviewed Nursing Family Hx Physical Exam Vital Signs Vital Signs - First Documented 10/05/23 08:03 Temp 36.3 Pulse 80 Resp 18 B/P (MAP) 126/60 (82) Pulse Ox 98 O2 Delivery Room Air Capillary Refill : Height, Weight, BMI Height: 5'4.00" Weight: 165lbs. 0.0oz. 74.859043jm; 25.00 BMI Method:Stated General Appearance: WD/WN, no apparent distress Cardiovascular: regular rate, rhythm, no murmur Respiratory: lungs clear, normal breath sounds Wrist: Yes limited ROM (Pain limited but essentially does have full range of motion), Yes pain (Lateral aspect), Yes soft tissue tenderness Hand: normal inspection, non-tender, no evidence of injury, normal ROM, Right Neurologic/Tendon: normal sensation Neurologic/Psychiatric: alert, oriented x 3 Progress/Results/Core Measures Results/Orders My Orders Orders - NELSON NEW MD Wrist, Right, 3 Views Or More (10/05/23 08:10) Vital Signs/I&O 10/05/23 08:03 Temp 36.3 Pulse 80 Resp 18 B/P (MAP) 126/60 (82) Pulse Ox 98 O2 Delivery Room Air Progress Progress Note : Progress Note Seen and evaluated. We will go ahead and get x-ray of the right wrist to rule out fracture. Monitor patient. Differential diagnosis includes fracture and strain of the right wrist 0840: Wrist x-ray reviewed by me and I do not see any obvious fracture on my interpretation. Report reviewed and radiology agrees. I did discuss with the patient about findings and radiology report. She will continue with the topical anti-inflammatory and we did discuss use of a wrist splint that she can get [id number]. Patient encouraged that it is not broken. Discharged home with return precautions. Patient verbalized understanding instructions and agreement with plan. Departure Impression Primary Impression: Right wrist sprain Qualified Codes: S63.501A - Unspecified sprain of right wrist, initial encounter Disposition: HOME, SELF-CARE Condition: Stable Departure-Patient Inst. Decision time for Depature: 08:41 Referrals: [facility] [place] ([place]P/Family) Primary Care Physician LARY PIPER MD Patient Instructions: Wrist Sprain ED Add. Discharge Instructions: You may use krwi-kps-feuflbr wrist splint and I would recommend that you use that for the next week at all times except for when showering. You may use the topical anti-inflammatory as discussed. You may also take Tylenol/acetaminophen 1000 mg every 6-8 hours as needed for pain. Follow-up with your doctor for recheck and further evaluation as needed. You may also follow-up with Dr. Piper, orthopedist, for recheck and further evaluation. Call his office for appointment as needed. Return for worse pain, swelling, numbness, weakness or other concerns as needed. NELSON NEW MD Oct 05, 2023 08:14
--- NOTE | 2023-10-05 08:30 | Diagnostic Imaging Report ---
INDICATION: Fall, pain FINDINGS: A well-corticated tiny bony density distal to the ulnar styloid tip is present; this is believed chronic. It may reflect a remote avulsion or more likely incidental ossicle. No acute or subacute fracture identified. Alignment normal. The articular surface is smooth. IMPRESSION: No recent fracture. Tiny corticated density distal to the ulnar styloid tip may be old remote avulsion or incidental ossicle. Dictated by: Dictated on workstation # [id number]
== END 2023-10-05 08:44 | disposition home or self-care (01) ==
LOC: EDUNIT# 07:59 → ER 08:02
DX: S63.501A Unspecified sprain of right wrist, initial encounter (principal); W18.30XA Fall on same level, unspecified, initial encounter
CPT/HCPCS: 73110